=== PATIENT | male | born 1975 | race Caucasian/White ===

== ENCOUNTER 2017-05-28 08:42 | Day surgery (SDC) | payer MEDICAID, SELFPAY ==
[2017-05-28 09:06] VITALS: BP 149/92; PULSE 70; RESP 16; TEMP 36.8; O2SAT 96; BMI 54.0
--- NOTE | 2017-05-28 10:30 | RAD_ITS ---
PROCEDURE: Caudal block. DATE OF EXAMINATION: May 28, 2017. INDICATION: Male, 41 years old. Chronic back pain. FLUOROSCOPY TIME (if supplied): (0:11) minutes/seconds Fluoroscopic services provided for caudal block. RAD/OR-[place]/Epid Inj/Lum Sac/1st IMPRESSION: Fluoroscopic services provided for caudal block. Electronically Signed: Dada Craig MD at 12:38 EST Tel [phone], Service support ,
[2017-05-28] MEDS: MethylPREDNISolone Acetate 80 MG/ML Vial (10:34)
[2017-05-28] MEDS: Bupivacaine 0.25% 30 ML Vial (10:34)
[2017-05-28 10:40] VITALS: BP 141/82; BP 149/92; PULSE 69; RESP 15; TEMP 37.1; O2SAT 94
[2017-05-28 10:45] VITALS: BP 112/48; BP 149/92; PULSE 66; RESP 16; O2SAT 96
[2017-05-28 10:50] VITALS: BP 119/67; BP 149/92; PULSE 63; RESP 16; O2SAT 97
[2017-05-28 10:55] VITALS: BP 126/62; BP 149/92; PULSE 65; RESP 16; TEMP 36.6; O2SAT 97
[2017-05-28 11:20] VITALS: BP 149/92
--- NOTE | 2017-05-28 15:49 | OP.PCM_ITS ---
Problem List (1) Degeneration of lumbosacral intervertebral disc Status: Chronic (2) Lumbosacral radiculopathy Status: Chronic (3) Lumbosacral stenosis Status: Chronic Report of Operation Date of Procedure: 05/28/17 Pre-Operative Diagnosis: Lumbosacral radiculopathy, lumbosacral degenerative disc disease, lumbosacral spinal stenosis Post-Operative Diagnosis: Lumbosacral radiculopathy, lumbosacral degenerative disc disease, lumbosacral spinal stenosis Surgery/Procedure Performed:: Caudal epidural steroid injection Description of Surgical Findings:: PROCEDURE: Caudal epidural steroid injection PREOPERATIVE DIAGNOSIS: Lumbosacral radiculopathy, lumbosacral degenerative disc disease, lumbosacral spinal stenosis POSTOPERATIVE DIAGNOSIS: Lumbosacral radiculopathy, lumbosacral degenerative disc disease, lumbosacral spinal stenosis ANESTHESIA: MAC COMPLICATIONS: None BLOOD LOSS: Minimal PROCEDURE IN DETAIL: History and physical today was reviewed. Risks and benefits of the procedure were explained. The patient understood, agreed to our procedure, and informed consent was obtained. IV inserted per routine protocol. The patient was taken to the operating room, placed in a prone position with a pillow positioned underneath the abdomen. Under direct physician fluoroscopy on the lateral view the caudal space was identified the skin and subcutaneous tissue were anesthetized approximately 3 cc of 1% lidocaine using a 25-gauge regular needle under direct visualization with fluoroscopy on the lateral view using a 22- gauge 3-1/2 inch spinal needle the needle was advanced via the skin through the sacral hiatus tip of the needle passed through the sacrococcygeal ligament advanced approximately S4 area after negative aspiration for blood or CSF a total of 3 cc of contrast were injected to confirm correct placement of the needle as well as cephalad spread the spread was followed to approximately L5 area after confirmation AP as well as lateral view and repeated negative aspiration a total of 15 cc of preservative-free 0.125% Marcaine with 80 mg of Depo-Medrol were injected easily. The needles were then removed intact.The patient experienced no signs or symptoms intrathecal, intravascular injection. The patient experienced no paraesthesia. The procedure was completed without any apparent difficult, any complication. The patient appeared to tolerate well. ASSESSMENT AND PLAN: This is a 41-year-old male with lumbosacral radiculopathy, lumbosacral degenerative disc disease, lumbosacral spinal stenosis status post caudal epidural steroid injection. The patient will continue his current medications. The patient will follow in approximately 2 weeks for possible repeat of the procedure if indicated.
== END 2017-05-28 11:20 | disposition home or self-care (01) ==
LOC: SDC 08:48 → AC 08:52
PROVIDERS: Visit Provider Anesthesiology Pain Medicine
PROC: 3E0S3BZ Introduction of Anesthetic Agent into Epidural Space, Percutaneous Approach (ICD-10-PCS; CPT 62282; principal; 2017-05-28 10:25)
DX: M51.17 Intervertebral disc disorders with radiculopathy, lumbosacral region (principal); M48.07 Spinal stenosis, lumbosacral region; M48.061 Spinal stenosis, lumbar region without neurogenic claudication; M51.16 Intervertebral disc disorders with radiculopathy, lumbar region; M47.26 Other spondylosis with radiculopathy, lumbar region; M50.30 Other cervical disc degeneration, unspecified cervical region; M47.812 Spondylosis without myelopathy or radiculopathy, cervical region; M25.512 Pain in left shoulder; M79.7 Fibromyalgia; I25.2 Old myocardial infarction; K21.9 Gastro-esophageal reflux disease without esophagitis; F17.200 Nicotine dependence, unspecified, uncomplicated; Z79.891 Long term (current) use of opiate analgesic; Z79.899 Other long term (current) drug therapy
CPT/HCPCS: 62323; 64520; 64483; 77003; J7120; J3490

== ENCOUNTER 2017-12-24 12:32 | Day surgery (SDC) | payer MEDICAID, SELFPAY ==
[2017-12-24 12:46] VITALS: BP 127/79; PULSE 85; RESP 18; TEMP 36.2; O2SAT 97; BMI 52.7
[2017-12-24] MEDS: Bupivacaine Mpf 0.5% 30 ML VIAL (13:56)
[2017-12-24] MEDS: MethylPREDNISolone Acetate 80 MG/ML Vial (13:56)
--- NOTE | 2017-12-24 14:05 | RAD_ITS ---
PROCEDURE: Caudal block. DATE OF EXAMINATION: December 24, 2017. INDICATION: Male, 42 years old. Low back pain. FLUOROSCOPY TIME (if supplied): (0:15) minutes/seconds. 2 coned-down views were obtained. Intraoperative imaging provided for caudal block. The spinal needle is seen along the posterior midportion of the sacrum. RAD/Fluor Guidance for Spine Inj IMPRESSION: Intraoperative imaging provided for caudal block. Electronically Signed: Dada Craig MD at 11:14 EDT Tel [phone], Service support ,
[2017-12-24 14:08] VITALS: BP 115/76; BP 127/79; PULSE 80; RESP 16; TEMP 36.6; O2SAT 96
[2017-12-24 14:10] VITALS: BP 127/79; BP 129/75; PULSE 84; RESP 16; O2SAT 95
[2017-12-24 14:15] VITALS: BP 127/79; BP 138/76; PULSE 84; RESP 16; O2SAT 93
[2017-12-24 14:20] VITALS: BP 115/70; BP 127/79; PULSE 77; RESP 16; TEMP 36.4; O2SAT 96
[2017-12-24 14:41] VITALS: BP 127/79
--- NOTE | 2017-12-24 15:10 | OP.PCM_ITS ---
Problem List (1) Degeneration of lumbosacral intervertebral disc Status: Chronic (2) Lumbosacral radiculopathy Status: Chronic (3) Lumbosacral stenosis Status: Chronic Report of Operation Date of Procedure: 12/24/17 Pre-Operative Diagnosis: Lumbosacral radiculopathy, lumbosacral degenerative disc disease, lumbosacral spinal stenosis Post-Operative Diagnosis: Lumbosacral radiculopathy, lumbosacral degenerative disc disease, lumbosacral spinal stenosis Surgery/Procedure Performed:: Caudal epidural steroid injection Description of Surgical Findings:: PROCEDURE: Caudal epidural steroid injection PREOPERATIVE DIAGNOSIS: Lumbosacral radiculopathy, lumbosacral degenerative disc disease, lumbosacral spinal stenosis POSTOPERATIVE DIAGNOSIS: Lumbosacral radiculopathy, lumbosacral degenerative disc disease, lumbosacral spinal stenosis ANESTHESIA: MAC COMPLICATIONS: None BLOOD LOSS: Minimal PROCEDURE IN DETAIL: History and physical today was reviewed. Risks and benefits of the procedure were explained. The patient understood, agreed to our procedure, and informed consent was obtained. IV inserted per routine protocol. The patient was taken to the operating room, placed in a prone position with a pillow positioned underneath the abdomen. The lower back and tailbone area was prepped and draped in a sterile fashion using iodine ?3 under fluoroscopy guidance on the lateral view the caudal space was identified the skin and subcutaneous tissue and size approximately 3 cc of 1 % lidocaine using a 25-gauge regular needle under direct visualization fluoroscopy using the lateral approach using a 22-gauge 3-1/2 inch spinal needle the needle was advanced via the skin through the sacral hiatus, tip of the needle passed through the sacrococcygeal ligament advanced approximately S4 area after negative aspiration for blood or CSF a total of 3 cc of contrast were injected to confirm correct placement of the needle as well as cephalad spread the spread was followed to approximately L5 area after confirmation AP as well as lateral view repeated negative aspiration a total of 15 cc of preservative-free 0.125% Marcaine with 80 mg of the portal was injected easily. The needles were then removed intact. The patient experienced no signs or symptoms intrathecal, intravascular injection. The patient experienced no paraesthesia. The procedure was completed without any apparent difficult, any complication. The patient appeared to tolerate well. ASSESSMENT AND PLAN: This is a 42-year-old male with lumbosacral radiculopathy, lumbosacral degenerative disc disease, lumbosacral spinal stenosis status post caudal epidural steroid injection. The patient will continue his current medications. The patient will follow in approximately 2 weeks for possible repeat of the procedure if indicated.
== END 2017-12-24 14:42 | disposition home or self-care (01) ==
LOC: SDC 12:32 → AC 12:42
PROVIDERS: Visit Provider Anesthesiology Pain Medicine
PROC: 3E0S3BZ Introduction of Anesthetic Agent into Epidural Space, Percutaneous Approach (ICD-10-PCS; CPT 62282; principal; 2017-12-24 14:00)
DX: M51.17 Intervertebral disc disorders with radiculopathy, lumbosacral region (principal); M48.07 Spinal stenosis, lumbosacral region; I10 Essential (primary) hypertension; I25.2 Old myocardial infarction; G47.30 Sleep apnea, unspecified; G25.81 Restless legs syndrome; K21.9 Gastro-esophageal reflux disease without esophagitis; F41.9 Anxiety disorder, unspecified; F32.9 Major depressive disorder, single episode, unspecified; Z79.899 Other long term (current) drug therapy; F17.200 Nicotine dependence, unspecified, uncomplicated
CPT/HCPCS: 01992; 62323; 64483; 77003; J7120; J3490

== ENCOUNTER 2018-05-13 07:28 | Day surgery (SDC) | payer MEDICAID, SELFPAY ==
[2018-05-13] VITALS (7 sets, daily range): BP systolic 108–128; BP diastolic 66–76; PULSE 65–80; RESP 16–18; TEMP 36.4–37; O2SAT 93–98; BMI 54.1
--- NOTE | 2018-05-13 08:40 | RAD_ITS ---
STUDY: X-RAY -FLUOROSCOPY FOR TRANSFORAMINAL BLOCK REASON FOR EXAM: Male, 42 years old. Pain TECHNIQUE: 2 view(s) of the lumbar spine were obtained. COMPARISON: None FINDINGS: 2 views of the lower lumbar spine were obtained on a C-arm for rest foramina block. Needle is seen on the right side of the last lumbar vertebra. The exam otherwise is nondiagnostic. The fluoroscopy time was 25 seconds. RAD/Lumbar Spine 2 or 3 Views IMPRESSION: Intraoperative exam as described above. Electronically Signed: Keith Gardiner MD at 13:31 EST Tel , Service support ,
[2018-05-13] MEDS: Bupivacaine 0.25% 30 ML Vial (08:51)
[2018-05-13] MEDS: MethylPREDNISolone Acetate 80 MG/ML Vial (08:51)
--- NOTE | 2018-05-13 11:35 | PCM.OPRPT ---
Problem List (1) Degeneration of lumbosacral intervertebral disc Status: Chronic (2) Lumbosacral radiculopathy Status: Chronic (3) Lumbosacral stenosis Status: Chronic Report of Operation Date of Procedure: 05/13/18 Pre-Operative Diagnosis: Lumbosacral radiculopathy, lumbosacral degenerative disc disease, lumbosacral spinal stenosis Post-Operative Diagnosis: Lumbosacral radiculopathy, lumbosacral degenerative disc disease, lumbosacral spinal stenosis Surgery/Procedure Performed:: Left-sided lumbar transforaminal epidural steroid injection L4-5, L5-S1 Description of Surgical Findings:: PROCEDURE: Left-sided lumbar transforaminal epidural steroid injection L4-5, L5-S1 PREOPERATIVE DIAGNOSIS: Lumbosacral radiculopathy, lumbosacral degenerative disc disease, lumbosacral spinal stenosis POSTOPERATIVE DIAGNOSIS: Lumbosacral radiculopathy, lumbosacral degenerative disc disease, lumbosacral spinal stenosis ANESTHESIA: MAC COMPLICATIONS: None BLOOD LOSS: Minimal PROCEDURE IN DETAIL: History and physical today was reviewed. Risks and benefits of the procedure were explained. The patient understood, agreed to our procedure, and informed consent was obtained. IV inserted per routine protocol. The patient was taken to the operating room, placed in a prone position with a pillow positioned underneath the abdomen. The lower back and tailbone area was prepped and draped in a sterile fashion using iodine x3 under fluoroscopy guidance on the right oblique view the L4 through S1 vertebral bodies are visualized the skin and subcutaneous tissue and size approximately 5 cc of 1% lidocaine using a 25-gauge regular needle under direct visualization fluoroscopy at approximately 35 degrees angle starting on the left L4 ending on the left L5 using a 22-gauge 5 inch spinal needle the needle was advanced via the skin tip of the needle's maneuver and directed towards the inferior and medial gutter of the transverse process at the superiormost aspect of the neuroforamen under direct physician fluoroscopy on a AP as well as lateral view after negative aspiration for blood or CSF a total of 2 cc of contrast were injected in divided doses between both levels to confirm correct placement of the needle as well as medial spread the confirmation was obtained on AP as well as lateral view after repeated negative aspiration and confirmation a total of 6 cc of preservative-free 0.25% Marcaine with 80 mg of Demerol was injected in divided doses between both levels the needles were then removed intact. The patient experienced no signs or symptoms intrathecal, intravascular injection. The patient experienced no paraesthesia. The procedure was completed without any apparent difficult, any complication. The patient appeared to tolerate well. ASSESSMENT AND PLAN: This is a 42-year-old male with lumbosacral radiculopathy lumbosacral degenerative disc disease lumbosacral spinal stenosis status post left-sided lumbar transforaminal epidural steroid injection L4-S1, patient would continue his current medications the patient will follow in approximately 2 weeks for reevaluation.
== END 2018-05-13 09:49 | disposition home or self-care (01) ==
LOC: SDC 07:28 → AC 07:30
PROVIDERS: Family Provider Internal Medicine; PCP Internal Medicine; Referring Provider Anesthesiology Pain Medicine; Visit Provider Anesthesiology Pain Medicine
PROC: 3E0S3BZ Introduction of Anesthetic Agent into Epidural Space, Percutaneous Approach (ICD-10-PCS; CPT 64484; principal; 2018-05-13 08:35)
DX: M51.17 Intervertebral disc disorders with radiculopathy, lumbosacral region (principal); M48.07 Spinal stenosis, lumbosacral region; K21.9 Gastro-esophageal reflux disease without esophagitis; I10 Essential (primary) hypertension; I25.2 Old myocardial infarction; F17.200 Nicotine dependence, unspecified, uncomplicated; Z79.1 Long term (current) use of non-steroidal anti-inflammatories (NSAID); Z79.899 Other long term (current) drug therapy
CPT/HCPCS: 01936; 64484; 64483; 72100; J7120

== ENCOUNTER 2019-03-10 10:30 | Outpatient (RCR) | payer MEDICAID, SELFPAY ==
[2018-05-13 07:42] VITALS: BMI 54.1
--- NOTE | 2018-12-24 10:03 | HP.PTEVAL_ITS ---
Patient's Visit Information RAFAL DUARTE is a 43 year old M referred to Physical Therapy by ANNMARIE Haynes with a diagnosis of Lumbar, Cervical, Thoracic and Shoulder. Date of Evaluation: 12/24/18 Physical Therapist: Madina Wing DPT - Visit Plan Frequency: 2x /Week Duration: 4 Weeks Plan: Aquatic PT- focus on LE, UE, scap and core s/s. - Subjective Findings: Patient reports that pain managment referred him- to get his injections he has to do therapy. He has spinal stenosis and arthritis throughout his whole spine. 2012 had an ACDF and it left his left neck and shoulder problematic. Was working at the [employer] and was unsure exactly what happened but a chip broke off and punctured his spinal cord. Has numbness and weakness in the let side and its starting to travel to the right. Has N/T bilateral LE and lymphedema in the left side. Is not having injections in the cervical spine currently- has had them before- last time was last year. Gets 4 a year so tries to save for winter time. Describes the pain as sharp/shooting and dull and achy. It is really tight in the left upper trap. Gets more [place] the tighter he is but reports no blurred vision or dizziness. Last 2 fingers on the right are starting to go numb. Right hand dominate. Left side decreased finger dexterity and vice president client services strength. Gets pain that shoots down the arm to the tips of his fingers. Agg: sometimes nothing, turning wrong. Worst: 7/10 Eases: hot shower. Best: 10. Very challenging to look upwards. Had a MRI of the whole spine not to long ago. Sleep: distured hard to get comfortable- side sleeper. Has had PT before- went there earlier this year- they don't have a pool. Back pain insidious onset- has always had back pains but continues to get worse. Hard laboror for years. Worst: 11/16 Agg: twi sting, catching it just right it pops Best: 10 Eases: laying down helps sometimes. Describes the pain as sharp/shooting- along the upper lumbar spine and radiates to the neck and down to the toes. N/T left>right. Sharp/shooting runs down the LE as well. Does have a boot pump for lymphedema- the stockings were hard to get on- [employer] is managing lyphedema. PMHx/Meds: in chart - Objective Posture: FH, RS, increased kyphosis- does have increased muscle mass of upper trap and shoulder musculature on the right vs left. Pt is overweight- can correct posture in sitting with verbal cues but does not maintain. Gait: no significant deviaton noted- does have good arm swing and trunk rotation. HR/TR: able with UE A for balance. SLS: Left: 2 seconds Right: 4 seconds. ROM: Cervical: SB/Rot/Flx: WNL Extension: severe restriction and reports severe pain. Shoulder/Elbow/Wrist: WFL Lumbar: WFL in all planes but reports pain. Hip/Ankle/Knee: WFL. Sensation: diminished to gross touch on left UE and LE. Palpation: tender along paraspinals from lumbar to base of occiput- left upper trap to tip of acromion. Flex: HS: mild, Gastroc: mild. Strength: Cervical Spine: 4/5, Left Shoulder: 4-/5 throughout Right: 4+/5 throughout. Elbow: Left: 4-/5, Right: 5/5, Wrist: Left: 4/5, Right: 5/5, Auto Transport Driver: Left: 90/90/65 Right: 100/100/110. Core: poor, Hip: 4+/5, Knee: 5/5, Ankle: 5/5. Special Test: Slump: positive bilateral - Goals Goal 1:: Patient will be I with HEP and progression Goal Time Frame: 4-6 Weeks Goal 2:: Patient will maintain proper posture in sitting throughout tx session to demo increased core s/s. Goal Time Frame: 4-6 Weeks Goal 3:: Patient will report 5/10 pain for 1 week Goal Time Frame: 4-6 Weeks Goal 4:: Patient will report sleeping through the night for 3 days Goal Time Frame: 4-6 Weeks Goal 5:: Patient will demo 4+/5 in left UE Goal Time Frame: 4-6 Weeks - Rehabilitation Potential Physical Therapy Diagnosis: Patient presents with hypomobility- he has decreased ROM, strength and muscular endurance leading to poor posture and increased pain with ADL's. Rehabilitation Potential: Fair - Anticipated Interventions Patient/Client Instruction: Educate patient on: Benefits of Fitness Program For the Purpose of:: To improve muscle performance and motor function Therapeutic Exercise to Include: Strength training, Endurance training, Balance training, Agility training, Body mechanics, Postural training, Flexibilty training, Gait and locomotor training, In an aquatic setting, Dynamic Lumbar Stabilization, Scapular Strength/Stabilization For the Purpose of:: To improve muscle performance and motor function Thank you for the opportunity to evaluate your patient. For Medicare and Medicare HMO plans, please review the plan of care and approve it. It will need to be FAXED BACK to us at [phone] for Medicare purposes. For Medicare only, by signing this I certify the plan of care. Please let me know if there are questions or concerns regarding this plan of care. Physician Signature: Date:
--- NOTE | 2019-01-23 14:34 | HP.PTREVAL ---
Arely Gusman, BLAYNE-C, It has been my pleasure to treat RAFAL DUARTE over the last 10 visits for Lumbar, Cervical, Thoracic and Shoulder. Please see the progress note below for an update on the physical therapy plan of care! Subjective: Pt. reports AT has been going well, enjoys it. Pain still stays around a 6. States he needs to cont. working on balance and strength. Feels good to be in the pool, feels like it's carrying over. Objective/Function: Posture: FH, RS, increased kyphosis- does have increased muscle mass of upper trap and shoulder musculature on the right vs left. Pt is overweight- can correct posture in sitting with verbal cues but does not maintain. Gait: no significant deviaton noted- does have good arm swing and trunk rotation. HR/TR: able with UE A for balance. SLS: Left: 2 seconds Right: 4 seconds. ROM: Cervical: SB/Rot/Flx: WNL Extension: severe restriction and reports severe pain. Shoulder/Elbow/Wrist: WFL Lumbar: WFL in all planes but reports pain. Hip/Ankle/Knee: WFL. Sensation: diminished to gross touch on left UE and LE. Palpation: tender along paraspinals from lumbar to base of occiput- left upper trap to tip of acromion. Flex: HS: mild, Gastroc: mild. Strength: Cervical Spine: 4/5, Left Shoulder: 4/5 throughout Right: 4+/5 throughout. Elbow: Left: 4/5, Wrist: Left: 4/5, Right: 5/5, Spectrograph Operator: Left: 90/90/70 Right: 120/120/120. Core: poor, Hip: 4+/5. Special Test: Slump: positive bilateral Plan Plan: 01/23/19 - Pt. rescheduled 2x/week for 4 more weeks of AT. Cont. POC, progress as tolerated. Goals Goal 1:: Patient will be I with HEP and progression Goal Time Frame: 4-6 Weeks Goal 2:: Patient will maintain proper posture in sitting throughout tx session to demo increased core s/s. Goal Time Frame: 4-6 Weeks Goal 3:: Patient will report 5/10 pain for 1 week Goal Time Frame: 4-6 Weeks Goal 4:: Patient will report sleeping through the night for 3 days Goal Time Frame: 4-6 Weeks Goal 5:: Patient will demo 4+/5 in left UE Goal Time Frame: 4-6 Weeks Anticipated Interventions Patient/Client Instruction: Educate patient on: Benefits of Fitness Program For the Purpose of:: To improve muscle performance and motor function Therapeutic Exercise to Include: Strength training, Endurance training, Balance training, Agility training, Body mechanics, Postural training, Flexibilty training, Gait and locomotor training, In an aquatic setting, Dynamic Lumbar Stabilization, Scapular Strength/Stabilization For the Purpose of:: To improve muscle performance and motor function Please do not hesitate to contact me at [phone] by phone or if you have questions or concerns regarding this new plan of care! Sincerely, Madina Wing DPT
--- NOTE | 2019-03-10 10:58 | HP.PTDCSUM ---
HP - PT D/C Summary It has been my pleasure to treat RAFAL DUARTE under orders from ANNMARIE Haynes, for the diagnosis of Lumbar, Cervical, Thoracic and Shoulder for a total of 17 visit(s). Discharge Date: Please see the following information for a summary of their discharge status. - Subjective Subjective: Patient reports that he has good days and bad days. Neck is popping and more painful since starting therapy. His back was doing well when in therapy but is starting to get sore again. Is doing a lot more car traveling and that bothers him. Is planning to continue his exercises at home. - Pain Cerv. Spine Pain Intensity (Out of 10): 7 Shoulder Pain Intensity (Out of 10): 7 Thoracic Spine Pain Intensity (Out of 10): 4 Lumbar Spine Pain Intensity (Out of 10): 5 - Overall Improvement % Improvement: 70 - Objective Objective/Function: Posture: FH, RS, increased kyphosis- does have increased muscle mass of upper trap and shoulder musculature on the right vs left. Pt is overweight- can correct posture in sitting with verbal cues but does not maintain. Gait: no significant deviaton noted- does have good arm swing and trunk rotation. HR/TR: able with UE A for balance. SLS: Left: 2 seconds Right: 4 seconds. ROM: Cervical: SB/Rot/Flx: WNL Extension: severe restriction and reports severe pain. Shoulder/Elbow/Wrist: WFL Lumbar: WFL in all planes but reports pain. Hip/Ankle/Knee: WFL Palpation: tender along paraspinals from lumbar to base of occiput- left upper trap to tip of acromion. Flex: HS: mild, Gastroc: mild. Strength: Cervical Spine: 4/5, Left Shoulder: 4+/5 throughout Right: 4+/5 throughout. Elbow: Left: 4/5, Wrist: Left: 4/5, Right: 5/5,. No significant changes since re-evaluation - Goals Goal 1:: Patient will be I with HEP and progression Goal Progress: Goal Met Goal 2:: Patient will maintain proper posture in sitting throughout tx session to demo increased core s/s. Goal Progress: Progressing Goal 3:: Patient will report 5/10 pain for 1 week Goal Progress: Progressing Goal 4:: Patient will report sleeping through the night for 3 days Goal Progress: Progressing Goal 5:: Patient will demo 4+/5 in left UE Goal Progress: Progressing - Plan Plan: Discharge to HEP - D/C Information If there are questions or concerns regarding this patient's physical therapy, please feel free to call me at [phone]. Thank you for the referral of this patient. Sincerely, CORTEZ PrajapatiT
== END 2019-03-10 11:00 | disposition home or self-care (01) ==
LOC: PT 10:30
PROVIDERS: Family Provider Internal Medicine; PCP Internal Medicine; Referring Provider Nurse Practitioner Family; Visit Provider Nurse Practitioner Family
DX: M47.812 Spondylosis without myelopathy or radiculopathy, cervical region (principal); M12.9 Arthropathy, unspecified; M25.519 Pain in unspecified shoulder; S49.80XD Other specified injuries of shoulder and upper arm, unspecified arm, subsequent encounter; M47.814 Spondylosis without myelopathy or radiculopathy, thoracic region; M79.10 Myalgia, unspecified site; M48.061 Spinal stenosis, lumbar region without neurogenic claudication; M51.36 Other intervertebral disc degeneration, lumbar region; M47.816 Spondylosis without myelopathy or radiculopathy, lumbar region; M54.16 Radiculopathy, lumbar region
CPT/HCPCS: 97110; 97113; 97162; 97164; 97530

== ENCOUNTER 2019-04-14 08:11 | Day surgery (SDC) | payer MEDICAID, SELFPAY ==
[2018-05-13 07:42] VITALS: BMI 54.1
[2019-04-14] MEDS: Bupivacaine 0.25% 30 ML Vial (07:00)
[2019-04-14 08:40] VITALS: BP 149/83; PULSE 76; RESP 16; TEMP 36.3; O2SAT 97; BMI 54.9
[2019-04-14] MEDS: Lactated Ringers 1,000 ML 100 ML IV (08:55)
--- NOTE | 2019-04-14 09:36 | RAD_ITS ---
STUDY: X-RAY - CERVICAL SPINE REASON FOR EXAM: Male, 43 years old. Injection C4-C7, 4 SPOTS TECHNIQUE: 4 Limited C-arm view(s) of the cervical spine were obtained. COMPARISON: None FINDINGS: 4 Limited C-arm films of the cervical spine were performed as patient has undergone facet joint injection at C4, C5, C6 and C7. RAD/Cerv Spine 4 or 5 Views IMPRESSION: Facet joint injections Electronically Signed: Eber Richard MD at 16:10 EST , Service support ,
[2019-04-14] MEDS: MethylPREDNISolone Acetate 80 MG/ML Vial (09:41)
[2019-04-14 09:53] VITALS: BP 141/81; BP 149/83; PULSE 69; RESP 18; TEMP 37; O2SAT 94
--- NOTE | 2019-04-14 09:53 | OP.PCM_ITS ---
Report of Operation Date of Procedure: 04/14/19 Description of Surgical Findings:: PREOPERATIVE DIAGNOSIS: Cervical spondylosis, cervical degenerative disc disease, cervical facet arthropathy POSTOPERATIVE DIAGNOSIS: Cervical spondylosis, cervical degenerative disc disease, cervical facet arthropathy PROCEDURE PERFORMED: Left-sided cervical facet steroid injection, C4, C5, C6, and C7. ANESTHESIA: MAC. BLOOD LOSS: Minimal. COMPLICATIONS: None. DESCRIPTION OF PROCEDURE: History and physical of today was reviewed. Risks and benefits of the procedure were explained. The patient understood and agreed to proceed. Informed consent was obtained. IV inserted per routine protocol. The patient was taken to the operating room and placed in the prone position with a pillow positioned underneath the chest. The neck area was prepped and draped in a sterile fashion using iodine x3. Under fluoroscopy guidance on an AP view, the C4 through C7 vertebral bodies were visualized at approximately 10- degree angle, starting on the left C4, ending on the left C7, passing through the C5 and C6. Using a 25-gauge 3-1/2-inch spinal needle, the needle was advanced via the skin. The tip of the needle was maneuvered and directed towards the epiphyseal junction of each corresponding vertebra. Once the tip of the needle was at the vicinity of the medial branch, the needle was pulled approximately 2 mm off the bone. After negative aspiration of blood or CSF and confirmation on AP, oblique as well as lateral view, a total of 4 mL of preservative-free 0.25% Marcaine with 80 mg of Depo-Medrol was injected in divided doses between those four levels. The needles were then removed intact. The patient experienced no sign or symptoms of intrathecal or intravascular injection. The patient experienced no paresthesia. The procedure was completed without any apparent difficulty or any complications. The patient appeared to tolerate it well. ASSESSMENT AND PLAN: This is a 43-year-old male with cervical spondylosis, cervical degenerative disc disease, cervical facet arthropathy status post left-sided cervical facet steroid injection C4-C7 patient will continue his current medications patient phone approximately 2 weeks for reevaluation.
[2019-04-14 10:00] VITALS: BP 149/83; BP 152/95; PULSE 69; RESP 18; O2SAT 95
[2019-04-14 10:05] VITALS: BP 149/83; BP 152/85; PULSE 71; RESP 18; O2SAT 97
[2019-04-14 10:10] VITALS: BP 143/88; BP 149/83; PULSE 68; RESP 18; TEMP 37.2; O2SAT 97
[2019-04-14 10:28] VITALS: BP 149/83
== END 2019-04-14 10:28 | disposition home or self-care (01) ==
LOC: SDC 08:14 → AC 08:14
PROVIDERS: Family Provider Internal Medicine; PCP Internal Medicine; Referring Provider Anesthesiology Pain Medicine; Visit Provider Anesthesiology Pain Medicine
PROC: 3E0U3BZ Introduction of Anesthetic Agent into Joints, Percutaneous Approach (ICD-10-PCS; CPT 64490; principal; 2019-04-14 09:40)
DX: M47.812 Spondylosis without myelopathy or radiculopathy, cervical region (principal); M50.321 Other cervical disc degeneration at C4-C5 level; M25.519 Pain in unspecified shoulder; M47.814 Spondylosis without myelopathy or radiculopathy, thoracic region; M79.7 Fibromyalgia; M51.17 Intervertebral disc disorders with radiculopathy, lumbosacral region; M48.07 Spinal stenosis, lumbosacral region; M47.27 Other spondylosis with radiculopathy, lumbosacral region; F17.200 Nicotine dependence, unspecified, uncomplicated; I10 Essential (primary) hypertension; I25.2 Old myocardial infarction; K21.9 Gastro-esophageal reflux disease without esophagitis; Z79.891 Long term (current) use of opiate analgesic; Z79.899 Other long term (current) drug therapy
CPT/HCPCS: 64491; 64490; 72040; 72050; J7120

== ENCOUNTER 2019-05-26 08:20 | Day surgery (SDC) | payer MEDICAID, SELFPAY ==
[2019-05-26] VITALS (7 sets, daily range): BP systolic 109–140; BP diastolic 72–92; PULSE 70–86; RESP 16–20; TEMP 36.6–36.9; O2SAT 92–95; BMI 58.3
[2019-05-26] MEDS: Lactated Ringers 1,000 ML 100 ML IV (09:08)
--- NOTE | 2019-05-26 09:13 | RAD_ITS ---
STUDY: X-RAY - CERVICAL SPINE REASON FOR EXAM: Male, 43 years old. RADIOFREQUENCY ABLATION C4-C7 -- 46.9 FLUORO SEC, 10.33mGy, 14 FLUORO IMAGES TECHNIQUE: 10: Intraoperative view(s) of the cervical spine were obtained. COMPARISON: None FINDINGS: Intraoperative fluoroscopic services provided for left C4-C7 radiofrequency ablation. RAD/Cerv Spine 2 or 3 Views IMPRESSION: Intraoperative fluoroscopic services provided for left C4-C7 radiofrequency ablation. Electronically Signed: Dada Craig, at 15:45 EST , Service support ,
[2019-05-26] MEDS: Bupivacaine 0.25% 30 ML Vial (09:24)
[2019-05-26] MEDS: MethylPREDNISolone Acetate 80 MG/ML Vial (09:24)
--- NOTE | 2019-05-26 12:22 | PCM.OPRPT ---
Report of Operation Date of Procedure: 05/26/19 Description of Surgical Findings:: PREOPERATIVE DIAGNOSIS: Cervical spondylosis, cervical degenerative disc disease, cervical facet arthropathy POSTOPERATIVE DIAGNOSIS: Cervical spondylosis, cervical degenerative disc disease, cervical facet arthropathy PROCEDURE PERFORMED: Left-sided radiofrequency ablation of the medial branch at C4, C5, C6, and C7. ANESTHESIA: MAC. BLOOD LOSS: Minimal. COMPLICATIONS: None. DESCRIPTION OF PROCEDURE: History and physical of today was reviewed. Risks and benefits of the procedure were explained. The patient understood and agreed to proceed. Informed consent was obtained. IV inserted per routine protocol. The patient was taken to the operating room and placed in the prone position with a pillow positioned underneath the chest. The neck area was prepped and draped in a sterile fashion using iodine x3. Under fluoroscopy guidance on an AP view, the C4 through C7 vertebral bodies were visualized. The skin and subcutaneous tissue was anesthetized with approximately 10 mL of 1% lidocaine using a 25-gauge regular needle. Under direct visualization on fluoroscopy on a lateral view, using a 21-gauge 10-cm with a 10-mm curved active-tip radiofrequency ablation needle, the needle was passed through the skin. The tip of the needle was maneuvered and directed towards the epiphyseal junction of each corresponding vertebra, starting on the left C4, ending on the left C7, passing through the C5 and C6. Once the tip of the needle was at the vicinity of the medial branch and at the middle of the trapezoid on the lateral view, the stylette of each needle was then removed. After negative aspiration of blood or CSF and confirmation on AP, oblique as well as lateral view, radiofrequency ablation probe was then inserted at each level. Impedance was then recorded at C4 to be 276 ohm, at C5 to be 239 ohm, at C6 to be 252 ohm, and at C7 to be 290 ohm. Motor-evoked potential was then initiated to 1.5 volt without any motor response to each corresponding level or the left arm. The probe was then removed intact and a total of 4 mL of preservative-free 1% lidocaine was injected in divided doses between those four levels after negative aspiration of blood or CSF. After repeated confirmation, the radiofrequency ablation probe was then inserted and after repeated confirmation on AP, oblique as well as lateral view, radiofrequency ablation was then initiated to approximately 80 degree Celsius for 60 second at each level. Once concluded, the probe was then removed intact. A total of 4 mL of preservative-free 0.25% Marcaine with 40 mg of Depo-Medrol was injected in divided doses between those four levels. The needles were then removed intact. The patient experienced no sign or symptoms of intrathecal or intravascular injection. The patient experienced no paresthesia. The procedure was completed without any apparent difficulty or any complications. The patient appeared to tolerate it well. Sensory as well as motor exam was unchanged from prior to the procedure. ASSESSMENT AND PLAN: This is a 43-year-old male with cervical spondylosis, cervical degenerative disc disease, cervical facet arthropathy status post left-sided cervical radiofrequency ablation of the medial branch C4-C7 patient will continue his current medications, patient will follow approximately 2 weeks for reevaluation.
== END 2019-05-26 10:39 | disposition home or self-care (01) ==
LOC: SDC 08:21 → AC 08:25
PROVIDERS: PCP Internal Medicine; Referring Provider Anesthesiology Pain Medicine; Visit Provider Anesthesiology Pain Medicine
PROC: (CPT 64633; principal; 2019-05-26 09:55)
DX: M47.812 Spondylosis without myelopathy or radiculopathy, cervical region (principal); M50.321 Other cervical disc degeneration at C4-C5 level; M50.323 Other cervical disc degeneration at C6-C7 level; M47.814 Spondylosis without myelopathy or radiculopathy, thoracic region; M51.36 Other intervertebral disc degeneration, lumbar region; M47.816 Spondylosis without myelopathy or radiculopathy, lumbar region; F17.200 Nicotine dependence, unspecified, uncomplicated; I10 Essential (primary) hypertension; G47.30 Sleep apnea, unspecified; Z79.891 Long term (current) use of opiate analgesic; Z79.899 Other long term (current) drug therapy
CPT/HCPCS: 64633; 64634 ×3; 72040; 76000; J7120

== ENCOUNTER 2019-08-11 07:54 | Day surgery (SDC) | payer MEDICAID, SELFPAY ==
[2019-05-26 08:54] VITALS: BMI 58.3
[2019-08-11 08:05] VITALS: BP 138/73; PULSE 83; RESP 16; TEMP 36.9; O2SAT 96; BMI 56.3
[2019-08-11] MEDS: Lactated Ringers 1,000 ML 100 ML IV (08:12)
--- NOTE | 2019-08-11 09:10 | RAD_ITS ---
PROCEDURE: Caudal block. DATE OF EXAMINATION: August 11, 2019. INDICATION: Male, 43 years old. Low back pain. FLUOROSCOPY TIME (if supplied): (8.4 seconds) minutes/seconds Intraoperative imaging provided for caudal block. RAD/Fluor Guidance for Spine Inj IMPRESSION: Intraoperative imaging provided for caudal block. Electronically Signed: Dada Craig, at 13:11 EDT , Service support ,
[2019-08-11] MEDS: MethylPREDNISolone Acetate 80 MG/ML Vial (09:45)
[2019-08-11] MEDS: Bupivacaine 0.25% 30 ML Vial (09:45)
[2019-08-11] MEDS: 0.9% Normal Saline (Pres. free 10 ML Vial (09:45)
[2019-08-11 09:55] VITALS: BP 110/65; BP 138/73; PULSE 77; RESP 18; TEMP 36.9; O2SAT 97
--- NOTE | 2019-08-11 09:58 | PCM.OPRPT ---
Report of Operation Date of Procedure: 08/11/19 Description of Surgical Findings:: PREOPERATIVE DIAGNOSIS: Lumbosacral radiculopathy, lumbosacral degenerative disc disease, lumbosacral spinal stenosis POSTOPERATIVE DIAGNOSIS: Lumbosacral radiculopathy, lumbosacral degenerative disc disease, lumbosacral spinal stenosis PROCEDURE PERFORMED: Caudal epidural steroid injection. ANESTHESIA: MAC. BLOOD LOSS: Minimal. COMPLICATIONS: None. DESCRIPTION OF PROCEDURE: History and physical of today was reviewed. Risks and benefits of the procedure were explained. The patient understood and agreed to proceed. Informed consent was obtained. IV inserted per routine protocol. The patient was taken to the operating room and placed in the prone position with a pillow positioned underneath the abdomen. The lower back and tailbone area was prepped and draped in a sterile fashion using iodine x3. Under fluoroscopy guidance on a lateral view, the caudal space was identified. The skin and subcutaneous tissue was anesthetized with approximately 3 mL of 1% lidocaine using a 25-gauge regular needle. Under direct visualization with fluoroscopy, using a 22-gauge 3-1/2-inch spinal needle, the needle was advanced via the skin through the sacral hiatus. The tip of the needle was passed through the sacrococcygeal ligament and advanced to approximately S4 area. After negative aspiration of blood or CSF, a total of 3 mL of contrast was injected to confirm correct placement of the needle as well as cephalad spread. The spread was followed to approximately L5 area. After confirmation on AP as well as lateral view and repeated negative aspiration, a total of 15 mL of preservative-free 0.125% Marcaine with 80 mg of Depo-Medrol was injected easily. The needle was then removed intact. The patient experienced no sign or symptoms of intrathecal or intravascular injection. The patient experienced no paresthesia. The procedure was completed without any apparent difficulty or any complications. The patient appeared to tolerate it well. ASSESSMENT AND PLAN: This is a 43-year-old male with lumbosacral radiculopathy, lumbosacral degenerative disc disease, lumbosacral spinal stenosis status post caudal epidural steroid injection, patient will continue his current medications, patient will follow approximately 2 weeks for reevaluation.
[2019-08-11 10:00] VITALS: BP 119/64; BP 138/73; PULSE 76; RESP 18; O2SAT 96
[2019-08-11 10:05] VITALS: BP 130/61; BP 138/73; PULSE 74; RESP 18; O2SAT 98
[2019-08-11 10:15] VITALS: BP 138/73; BP 146/85; PULSE 76; RESP 18; TEMP 37.2; O2SAT 97
[2019-08-11 10:27] VITALS: BP 138/73
== END 2019-08-11 10:27 | disposition home or self-care (01) ==
LOC: SDC 07:55 → AC 07:55
PROVIDERS: PCP Internal Medicine; Referring Provider Anesthesiology Pain Medicine; Visit Provider Anesthesiology Pain Medicine
PROC: 3E0S3BZ Introduction of Anesthetic Agent into Epidural Space, Percutaneous Approach (ICD-10-PCS; CPT 62282; principal; 2019-08-11 09:05)
DX: M48.07 Spinal stenosis, lumbosacral region (principal); M51.17 Intervertebral disc disorders with radiculopathy, lumbosacral region; M47.26 Other spondylosis with radiculopathy, lumbar region; M50.30 Other cervical disc degeneration, unspecified cervical region; M47.812 Spondylosis without myelopathy or radiculopathy, cervical region; M47.814 Spondylosis without myelopathy or radiculopathy, thoracic region; M79.7 Fibromyalgia; K21.9 Gastro-esophageal reflux disease without esophagitis; I25.2 Old myocardial infarction; I10 Essential (primary) hypertension; F17.200 Nicotine dependence, unspecified, uncomplicated; G47.30 Sleep apnea, unspecified; Z79.891 Long term (current) use of opiate analgesic; Z79.899 Other long term (current) drug therapy
CPT/HCPCS: 62323; 64520; 64483; 77003; J7120; J3490

== ENCOUNTER 2019-12-19 09:30 | Outpatient (RCR) | payer MEDICAID, SELFPAY ==
--- NOTE | 2019-11-04 09:28 | HP.PTEVAL ---
Patient's Visit Information RAFAL DUARTE is a 43 year old M referred to Physical Therapy by Dr. Sophia Nichols MD with a diagnosis of Low Back Pain. Date of Evaluation: 11/04/19 Physical Therapist: Madina Wing DPT - Visit Plan Frequency: 2x /Week Duration: 6 Weeks Plan: Aquatic Therapy- focus on core and functional strength - Subjective Patient reports that he has to have back therapy to have another MRI for another surgeon. Working with Dr. Rowell who specialized on larger people- he is out of [place]. Insurance wants him to do PT first prior to authorization. He reports having back problems for a long time. He had a cervical fusion in 2012 and since then its been really problems. He knows he has stenosis and arthritis. No specific injury- he had a very active lifestyle but then he started to have pain and has since stopped. Worst: 10 He feels like he get stuck and then has really painful pains in the left hip. Pain is always there Agg: lifting, bending, twisting Eases: injections Best: 10. Pain is located in the low back and radiates to the toes. describes the pain as dull and achy and sharp/shooting in different sports. He does report edema in his LE. Does have N/T in the LE which is pretty constant Left>right. Getting harder to urinate but no change in bowels. Sleep: bed- side sleeper- pain does wake him up and keeps him from sleeping. 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 PMHx/Meds: see list in chart. - Objective Posture: FH, RS, increased kyphosis- is unable to correct with verbal or tactile cues Pt is overweight- can correct posture in sitting with verbal cues but does not maintain. Gait: no significant deviaton noted- does have good arm swing and trunk rotation. HR/TR: able with UE A for balance. SLS:unable on the left and 4 seconds on the right ROM: Lumbar: WFL in all planes but reports pain. Hip/Ankle/Knee: WFL. Sensation: diminished to gross touch on left LE. Palpation: tender along paraspinals from lumbar to base of occiput-into the gluts on the left. Flex: HS: mod, Gastroc: mild. Strength: Core: poor, Hip: 4+/5, Knee: 5/5, Ankle: 5/5. Special Test: Slump: positive bilateral - Goals Goal 1:: Patient will be I with HEP and progression Goal Time Frame: 4-6 Weeks Goal 2:: Patient will maintain proper posture t/o tx session to demo increased core s/s Goal Time Frame: 4-6 Weeks Goal 3:: Patient will report 2/10 pain for 1 week Goal Time Frame: 4-6 Weeks - Rehabilitation Potential Physical Therapy Diagnosis: Patient presents with hypomobility- he has decreased painfree ROM, strength, flex and muscular endurance leading to abnormal gait increased pain with ADLs. Rehabilitation Potential: Fair - Anticipated Interventions Patient/Client Instruction: Educate patient on: Benefits of Fitness Program Therapeutic Exercise to Include: Strength training, Endurance training, Balance training, Agility training, Body mechanics, Postural training, Flexibilty training, Gait and locomotor training, Neuromotor development, In an aquatic setting, Passive ROM, Active ROM, Dynamic Lumbar Stabilization, Master Exercises For the Purpose of:: To improve muscle performance and motor function Thank you for the opportunity to evaluate your patient. For Medicare and Medicare HMO plans, please review the plan of care and approve it. It will need to be FAXED BACK to us at [phone] for Medicare purposes. For Medicare only, by signing this I certify the plan of care. Please let me know if there are questions or concerns regarding this plan of care. Physician Signature: Date:
--- NOTE | 2019-12-19 09:57 | HP.PTDCSUM ---
It has been my pleasure to treat RAFAL DUARTE referred by Dr. Sophia Nichols MD, with the diagnosis of Low Back Pain for a total of 14 visit(s). Discharge Date: 12/19/19 Please see the following information for a summary of their discharge status. Subjective: Water ex's have helped to manage back . Patient conts to have pain with bending and twisting. RLE Pain Intensity (Out of 10): 5 LLE Pain Intensity (Out of 10): 6 Lumbar Spine Pain Intensity (Out of 10): 6 LUE Pain Intensity (Out of 10): 6 % Improvement: 80 Objective/Function: POSTURE: MILD FOWARD POSTURE. GAIT: RECIPROCAL PATTERN. NEURO: INTACT. MMT: QUADS/HAMS/HIP 4/5,ANKLE 4/5. LUMBAR ROM: FLEXION WFL,EXTENSON MIN LOSS. -SLR Goal 1:: Patient will be I with HEP and progression Goal Progress: Goal Met Goal 2:: Patient will maintain proper posture t/o tx session to demo increased core s/s Goal Progress: Progressing Goal 3:: Patient will report 2/10 pain for 1 week Goal Progress: Progressing Plan: RTD possible MRI If there are questions or concerns regarding this patient's physical therapy, please feel free to call me at [phone]. Thank you for the referral of this patient. Sincerely, Kyle Tucker, PT, Cert MDT, OCS
== END 2019-12-19 19:00 | disposition home or self-care (01) ==
LOC: PT 09:30
PROVIDERS: PCP Internal Medicine; Referring Provider Internal Medicine; Visit Provider Internal Medicine
DX: M54.5 Low back pain (principal)
CPT/HCPCS: 97113; 97162; 97530

== ENCOUNTER 2020-01-26 08:46 | Day surgery (SDC) | payer MEDICAID, SELFPAY ==
--- NOTE | 2020-01-26 07:20 | RAD_ITS ---
PROCEDURE: Caudal block. DATE OF EXAMINATION: 01/26/2020. INDICATION: Male, 44 years old. Low back pain. FLUOROSCOPY TIME (if supplied): (11 seconds) minutes/seconds. 2 intraoperative images were obtained. RAD/Fluor Guidance for Spine Inj IMPRESSION: Intraoperative imaging provided for caudal block. Electronically Signed: Dada Craig, at 14:20 EDT , Service support ,
[2020-01-26 09:12] VITALS: BP 163/84; PULSE 77; RESP 16; TEMP 36.8; O2SAT 97; BMI 56.3
[2020-01-26] MEDS: Lactated Ringers 1,000 ML 100 ML IV (09:16)
[2020-01-26] MEDS: Bupivacaine 0.25% 30 ML Vial (09:48)
[2020-01-26] MEDS: MethylPREDNISolone Acetate 80 MG/ML Vial (09:48)
[2020-01-26] MEDS: 0.9% Normal Saline (Pres. free 10 ML Vial (09:49)
[2020-01-26 09:51] LABS: Bedside Glucose 111 mg/dL (70-110)
[2020-01-26 10:05] VITALS: RESP 16
[2020-01-26 10:10] VITALS: BP 141/105; BP 163/84; PULSE 76; RESP 16; O2SAT 97
[2020-01-26 10:15] VITALS: BP 145/95; BP 163/84; PULSE 65; RESP 18; O2SAT 95
[2020-01-26 10:24] VITALS: BP 125/77; BP 163/84; PULSE 68; RESP 16; O2SAT 98
[2020-01-26 10:32] VITALS: BP 163/84
--- NOTE | 2020-01-26 16:38 | PCM.OPRPT ---
Report of Operation Date of Procedure: 01/26/20 Description of Surgical Findings:: PREOPERATIVE DIAGNOSIS: Lumbosacral radiculopathy, lumbosacral degenerative disc disease, lumbosacral spinal stenosis POSTOPERATIVE DIAGNOSIS: Lumbosacral radiculopathy, lumbosacral degenerative disc disease, lumbosacral spinal stenosis PROCEDURE PERFORMED: Caudal epidural steroid injection. ANESTHESIA: MAC. BLOOD LOSS: Minimal. COMPLICATIONS: None. DESCRIPTION OF PROCEDURE: History and physical of today was reviewed. Risks and benefits of the procedure were explained. The patient understood and agreed to proceed. Informed consent was obtained. IV inserted per routine protocol. The patient was taken to the operating room and placed in the prone position with a pillow positioned underneath the abdomen. The lower back and tailbone area was prepped and draped in a sterile fashion using iodine x3. Under fluoroscopy guidance on a lateral view, the caudal space was identified. The skin and subcutaneous tissue was anesthetized with approximately 3 mL of 1% lidocaine using a 25-gauge regular needle. Under direct visualization with fluoroscopy, using a 22-gauge 3-1/2-inch spinal needle, the needle was advanced via the skin through the sacral hiatus. The tip of the needle was passed through the sacrococcygeal ligament and advanced to approximately S4 area. After negative aspiration of blood or CSF, a total of 3 mL of contrast was injected to confirm correct placement of the needle as well as cephalad spread. The spread was followed to approximately L5 area. After confirmation on AP as well as lateral view and repeated negative aspiration, a total of 15 mL of preservative-free 0.125% Marcaine with 80 mg of Depo-Medrol was injected easily. The needle was then removed intact. The patient experienced no sign or symptoms of intrathecal or intravascular injection. The patient experienced no paresthesia. The procedure was completed without any apparent difficulty or any complications. The patient appeared to tolerate it well. ASSESSMENT AND PLAN: This is a 44-year-old male with lumbosacral radiculopathy, lumbosacral disc disease, lumbosacral spinal stenosis status post caudal epidural steroid injection patient will continue his current medications, patient will follow in approximately 2 weeks for reevaluation.
== END 2020-01-26 10:43 | disposition home or self-care (01) ==
LOC: SDC 08:46 → AC 08:47
PROVIDERS: PCP Internal Medicine; Referring Provider Anesthesiology Pain Medicine; Visit Provider Anesthesiology Pain Medicine
PROC: 3E0S3BZ Introduction of Anesthetic Agent into Epidural Space, Percutaneous Approach (ICD-10-PCS; CPT 62282; principal; 2020-01-26 10:05)
DX: M51.17 Intervertebral disc disorders with radiculopathy, lumbosacral region (principal); M48.07 Spinal stenosis, lumbosacral region; F17.200 Nicotine dependence, unspecified, uncomplicated; K21.9 Gastro-esophageal reflux disease without esophagitis; I10 Essential (primary) hypertension; G47.30 Sleep apnea, unspecified; Z79.899 Other long term (current) drug therapy
CPT/HCPCS: 01992; 62323; 64520; 64483; 77003; 82962; J7120; J3490

== ENCOUNTER 2020-04-26 09:12 | Day surgery (SDC) | payer MEDICAID, SELFPAY ==
[2020-04-26 09:46] VITALS: BP 146/84; PULSE 78; RESP 16; TEMP 36.5; O2SAT 95; BMI 51.5
[2020-04-26] MEDS: Lactated Ringers 1,000 ML 100 ML IV (09:50)
[2020-04-26 10:31] LABS: Bedside Glucose 101 mg/dL (70-110)
--- NOTE | 2020-04-26 10:33 | RAD_ITS ---
PROCEDURE: Caudal block. DATE OF EXAMINATION: 04/26/2020. INDICATION: Male, 44 years old. Chronic low back pain. FLUOROSCOPY TIME (if supplied): (14.9 seconds) minutes/seconds. A single image was submitted. RAD/Fluor Guidance for Spine Inj IMPRESSION: Intraoperative imaging provided for caudal block. Electronically Signed: Dada Craig MD at 8:40 EST , Service support ,
[2020-04-26] MEDS: Bupivacaine 0.25% 30 ML Vial (10:41)
[2020-04-26] MEDS: 0.9% Normal Saline (Pres. free 10 ML Vial (10:41)
[2020-04-26] MEDS: Lidocaine 1% (5 ml sdv) 5 ML Vial (10:41)
[2020-04-26] MEDS: MethylPREDNISolone Acetate 40 MG/ML Vial IM (10:41)
--- NOTE | 2020-04-26 10:46 | PCM.OPRPT ---
Report of Operation Date of Procedure: 04/26/20 Description of Surgical Findings:: PREOPERATIVE DIAGNOSIS: Lumbosacral radiculopathy, lumbosacral degenerative disc disease, lumbosacral spinal stenosis POSTOPERATIVE DIAGNOSIS: Lumbosacral radiculopathy, lumbosacral degenerative disc disease, lumbosacral spinal stenosis PROCEDURE PERFORMED: caudal epidural steroid injection. ANESTHESIA: MAC. BLOOD LOSS: Minimal. COMPLICATIONS: None. DESCRIPTION OF PROCEDURE: History and physical of today was reviewed. Risks and benefits of the procedure were explained. The patient understood and agreed to proceed. Informed consent was obtained. IV inserted per routine protocol. The patient was taken to the operating room and placed in the prone position with a pillow positioned underneath the abdomen. The lower back and tailbone area was prepped and draped in a sterile fashion using iodine x3. Under fluoroscopy guidance on a lateral view, the caudal space was identified. The skin and subcutaneous tissue was anesthetized with approximately 3 mL of 1% lidocaine using a 25-gauge regular needle. Under direct visualization with fluoroscopy, using a 22-gauge 3-1/2-inch spinal needle, the needle was advanced via the skin through the sacral hiatus. The tip of the needle was passed through the sacrococcygeal ligament and advanced to approximately S4 area. After negative aspiration of blood or CSF, a total of 3 mL of contrast was injected to confirm correct placement of the needle as well as cephalad spread. The spread was followed to approximately L5 area. After confirmation on AP as well as lateral view and repeated negative aspiration, a total of 15 mL of preservative-free 0.125% Marcaine with 80 mg of Depo-Medrol was injected easily. The needle was then removed intact. The patient experienced no sign or symptoms of intrathecal or intravascular injection. The patient experienced no paresthesia. The procedure was completed without any apparent difficulty or any complications. The patient appeared to tolerate it well. ASSESSMENT AND PLAN: This is a 44-year-old male with lumbosacral radiculopathy, lumbosacral degenerative disc disease, lumbosacral spinal stenosis status post caudal epidural steroid injection, patient will continue his current medications, patient will follow approximately 2 weeks for reevaluation.
[2020-04-26 10:50] VITALS: BP 122/37; BP 146/84; PULSE 75; RESP 16; TEMP 36.7; O2SAT 92
[2020-04-26 10:55] VITALS: BP 128/47; BP 146/84; PULSE 77; RESP 16; O2SAT 94
[2020-04-26 11:00] VITALS: BP 136/83; BP 146/84; PULSE 70; RESP 16; O2SAT 96
[2020-04-26 11:05] VITALS: BP 133/78; BP 146/84; PULSE 72; RESP 16; TEMP 36.6; O2SAT 97
[2020-04-26 11:26] VITALS: BP 146/84
== END 2020-04-26 11:27 | disposition home or self-care (01) ==
LOC: SDC 09:13 → AC 09:14
PROVIDERS: PCP Internal Medicine; Referring Provider Anesthesiology Pain Medicine; Visit Provider Anesthesiology Pain Medicine
PROC: 3E0S3BZ Introduction of Anesthetic Agent into Epidural Space, Percutaneous Approach (ICD-10-PCS; CPT 62282; principal; 2020-04-26 10:35)
DX: M51.17 Intervertebral disc disorders with radiculopathy, lumbosacral region (principal); M48.07 Spinal stenosis, lumbosacral region; M47.27 Other spondylosis with radiculopathy, lumbosacral region; F17.200 Nicotine dependence, unspecified, uncomplicated; I10 Essential (primary) hypertension; G47.30 Sleep apnea, unspecified; K21.9 Gastro-esophageal reflux disease without esophagitis; Z79.891 Long term (current) use of opiate analgesic; Z79.899 Other long term (current) drug therapy
CPT/HCPCS: 62323; 64520; 64483; 77003; 82962; J7120; J3490

== ENCOUNTER 2020-08-09 13:29 | Day surgery (SDC) | payer MEDICAID, SELFPAY ==
[2020-08-09] VITALS (9 sets, daily range): BP systolic 112–155; BP diastolic 61–87; PULSE 66–81; RESP 16; TEMP 36.3–37.2; O2SAT 94–98; BMI 50.8
[2020-08-09] MEDS: Lactated Ringers 1,000 ML 100 ML IV (14:06)
[2020-08-09] MEDS: Bupivacaine 0.25% 30 ML Vial (14:33)
--- NOTE | 2020-08-09 14:36 | RAD_ITS ---
PROCEDURE: Caudal block. DATE OF EXAMINATION: 08/09/2020. INDICATION: Male, 44 years old. Chronic low back pain. FLUOROSCOPY TIME (if supplied): (9 seconds) minutes/seconds. 2 images were obtained. RAD/Fluor Guidance for Spine Inj IMPRESSION: Intraoperative imaging provided for caudal block. Electronically Signed: Daad Craig MD at 13:42 EDT , Service support ,
[2020-08-09] MEDS: MethylPREDNISolone Acetate 40 MG/ML Vial IM (14:42)
[2020-08-09] MEDS: 0.9% Normal Saline (Pres. free 10 ML Vial (14:42)
[2020-08-09] MEDS: Lidocaine 1% (5 ml sdv) 5 ML Vial (14:43)
--- NOTE | 2020-08-09 15:03 | OP.PCM_ITS ---
Report of Operation Date of Procedure: 08/09/20 Pre-Operative Diagnosis: Lumbosacral radiculopathy, lumbosacral degenerative di sc disease, lumbosacral spinal stenosis Post-Operative Diagnosis: Lumbosacral radiculopathy, lumbosacral degenerative disc disease, lumbosacral spinal stenosis Surgery/Procedure Performed:: Caudal epidural steroid injection under fluoroscopic guidance Type of Anesthesia: MAC Estimated Blood Loss (mL): Minimal Description of Procedure: DESCRIPTION OF PROCEDURE: History and physical of today was reviewed. Risks and benefits of the procedure were explained. The patient understood and agreed to proceed. Informed consent was obtained. IV inserted per routine protocol. The patient was taken to the operating room and placed in the prone position with a pillow positioned underneath the abdomen. The lower back and tailbone area was prepped and draped in a sterile fashion using iodine x3. Under fluoroscopy guidance on a lateral view, the caudal space was identified. The skin and subcutaneous tissue was anesthetized with approximately 3 mL of 1% lidocaine using a 25-gauge regular needle. Under direct visualization with fluoroscopy, using a 22-gauge 3-1/2-inch spinal needle, the needle was advanced via the skin through the sacral hiatus. The tip of the needle was passed through the sacrococcygeal ligament and advanced to approximately S4 area. After negative aspiration of blood or CSF, a total of 3 mL of contrast was injected to confirm correct placement of the needle as well as cephalad spread. The spread was followed to approximately L5 area. After confirmation on AP as well as lateral view and repeated negative aspiration, a total of 15 mL of preservative-free 0.125% Marcaine with 80 mg of Depo-Medrol was injected easily. The needle was then removed intact. The patient experienced no sign or symptoms of intrathecal or intravascular injection. The patient experienced no paresthesia. The procedure was completed without any apparent difficulty or any complications. The patient appeared to tolerate it well. ASSESSMENT AND PLAN: This is a 44-year-old male with lumbosacral radiculopathy, lumbosacral degenerative disc disease, lumbosacral spinal stenosis status post caudal epidural steroid injection, patient will continue his current medications, patient will follow in approximately 2 weeks for reevaluation. Complications None
== END 2020-08-09 15:45 | disposition home or self-care (01) ==
LOC: SDC 13:29 → AC 13:34
PROVIDERS: PCP Internal Medicine; Referring Provider Anesthesiology Pain Medicine; Visit Provider Anesthesiology Pain Medicine
PROC: 3E0S3BZ Introduction of Anesthetic Agent into Epidural Space, Percutaneous Approach (ICD-10-PCS; CPT 62282; principal; 2020-08-09 15:05)
DX: M51.17 Intervertebral disc disorders with radiculopathy, lumbosacral region (principal); M48.07 Spinal stenosis, lumbosacral region; M47.26 Other spondylosis with radiculopathy, lumbar region; I10 Essential (primary) hypertension; Z79.891 Long term (current) use of opiate analgesic; F17.210 Nicotine dependence, cigarettes, uncomplicated
CPT/HCPCS: 62323; 64520; 64483; 77003; J7120; J3490

== ENCOUNTER 2020-10-25 06:53 | Day surgery (SDC) | payer MEDICAID, SELFPAY ==
[2020-08-09 13:53] VITALS: BMI 50.8
[2020-10-25 07:40] LABS: Bedside Glucose 99 mg/dL (70-110)
[2020-10-25 07:59] VITALS: BP 154/97; PULSE 72; RESP 17; TEMP 36.2; O2SAT 100; BMI 52.5
[2020-10-25 08:44] LABS: Anion Gap 3 (5-15); BUN 15 mg/dL (7-18); BUN/Creat Ratio 20.7 RATIO (10-20); Calcium,Total 8.6 mg/dL (8.5-10.1); Chloride 108 mmol/L (98-107); Creatinine, Serum 0.72 mg/dL (0.70-1.30); EST Glomerular Filtration Rate 124 mL/min (>60); Est Glom Filt Rate - Afr Amer 150 mL/min (>60); Estimated Creatinine Clearance 125.35 ml/min; Glucose 94 mg/dL (74-106); Potassium 4.4 mmol/L (3.5-5.1); Sodium Level 139 mmol/L (136-145)
--- NOTE | 2020-10-25 09:40 | RAD_ITS ---
PROCEDURE: Left C4-C7 radiofrequency ablation. DATE OF EXAMINATION: 10/25/2020. INDICATION: Male, 44 years old. Chronic neck pain. FLUOROSCOPY TIME (if supplied): (35.3 seconds.) minutes/seconds RAD/Cerv Spine 2 or 3 Views IMPRESSION: Intraoperative imaging provided for left C4-C7 radiofrequency ablation. Electronically Signed: Dada Craig MD at 20:18 EDT , Service support ,
[2020-10-25] MEDS: MethylPREDNISolone Acetate 40 MG/ML Vial IM (09:42)
[2020-10-25] MEDS: Lidocaine 1% (30 ml sdv) 30 ML Vial (09:42)
[2020-10-25] MEDS: Bupivacaine 0.25% 30 ML Vial (09:42)
[2020-10-25 10:01] VITALS: BP 118/79; BP 154/97; PULSE 69; RESP 18; TEMP 35.8; O2SAT 95
[2020-10-25 10:05] VITALS: BP 122/93; BP 154/97; PULSE 69; RESP 18; O2SAT 97
[2020-10-25 10:10] VITALS: BP 139/96; BP 154/97; PULSE 67; RESP 18; O2SAT 97
[2020-10-25 10:18] VITALS: BP 154/97; BP 163/98; PULSE 65; RESP 18; TEMP 35.9; O2SAT 98
[2020-10-25 10:38] VITALS: BP 154/97
--- NOTE | 2020-10-25 16:09 | PCM.OPRPT ---
Report of Operation Date of Procedure: 10/25/20 Description of Surgical Findings:: PREOPERATIVE DIAGNOSIS: Cervical spondylosis, cervical degenerative disc disease, cervical facet arthropathy POSTOPERATIVE DIAGNOSIS: Cervical spondylosis, cervical degenerative disc disease, cervical facet arthropathy PROCEDURE PERFORMED: Left-sided radiofrequency ablation of the medial branch at C4, C5, C6, and C7. ANESTHESIA: MAC. BLOOD LOSS: Minimal. COMPLICATIONS: None. DESCRIPTION OF PROCEDURE: History and physical of today was reviewed. Risks and benefits of the procedure were explained. The patient understood and agreed to proceed. Informed consent was obtained. IV inserted per routine protocol. The patient was taken to the operating room and placed in the prone position with a pillow positioned underneath the chest. The neck area was prepped and draped in a sterile fashion using iodine x3. Under fluoroscopy guidance on an AP view, the C4 through C7 vertebral bodies were visualized. The skin and subcutaneous tissue was anesthetized with approximately 10 mL of 1% lidocaine using a 25-gauge regular needle. Under direct visualization on fluoroscopy on a lateral view, using a 21-gauge 10-cm with a 10-mm curved active-tip radiofrequency ablation needle, the needle was passed through the skin. The tip of the needle was maneuvered and directed towards the epiphyseal junction of each corresponding vertebra, starting on the left C4, ending on the left C7, passing through the C5 and C6. Once the tip of the needle was at the vicinity of the medial branch and at the middle of the trapezoid on the lateral view, the stylette of each needle was then removed. After negative aspiration of blood or CSF and confirmation on AP, oblique as well as lateral view, radiofrequency ablation probe was then inserted at each level. Impedance was then recorded at C4 to be 268 ohm, at C5 to be 307 ohm, at C6 to be 290 ohm, and at C7 to be 298 ohm. Motor-evoked potential was then initiated to 1.5 volt without any motor response to each corresponding level or the left arm. The probe was then removed intact and a total of 4 mL of preservative-free 1% lidocaine was injected in divided doses between those four levels after negative aspiration of blood or CSF. After repeated confirmation, the radiofrequency ablation probe was then inserted and after repeated confirmation on AP, oblique as well as lateral view, radiofrequency ablation was then initiated to approximately 80 degree Celsius for 60 second at each level. Once concluded, the probe was then removed intact. A total of 4 mL of preservative-free 0.25% Marcaine with 40 mg of Depo-Medrol was injected in divided doses between those four levels. The needles were then removed intact. The patient experienced no sign or symptoms of intrathecal or intravascular injection. The patient experienced no paresthesia. The procedure was completed without any apparent difficulty or any complications. The patient appeared to tolerate it well. Sensory as well as motor exam was unchanged from prior to the procedure. ASSESSMENT AND PLAN: This is a 44-year-old male with cervical spondylosis, cervical degenerative disc disease, cervical facet arthropathy status post left-sided cervical radiofrequency ablation of the medial branch at C4-C7, patient will continue his current medications, patient will follow in approximately 2 weeks for reevaluation.
== END 2020-10-25 10:40 | disposition home or self-care (01) ==
LOC: SDC 06:54 → AC 06:56
PROVIDERS: PCP Internal Medicine; Referring Provider Anesthesiology Pain Medicine; Visit Provider Anesthesiology Pain Medicine
PROC: (CPT 64633; principal; 2020-10-25 08:55)
DX: M47.812 Spondylosis without myelopathy or radiculopathy, cervical region (principal); M50.321 Other cervical disc degeneration at C4-C5 level; M79.7 Fibromyalgia; F17.200 Nicotine dependence, unspecified, uncomplicated; I10 Essential (primary) hypertension; G47.30 Sleep apnea, unspecified; Z79.1 Long term (current) use of non-steroidal anti-inflammatories (NSAID); Z79.891 Long term (current) use of opiate analgesic; Z79.899 Other long term (current) drug therapy
CPT/HCPCS: 01936; 64633; 64634; 72040; 76000; 80048; 82962; J7120

== ENCOUNTER 2020-12-27 10:41 | Day surgery (SDC) | payer MEDICAID, SELFPAY ==
[2020-12-27] VITALS (7 sets, daily range): BP systolic 112–174; BP diastolic 58–97; PULSE 64–73; RESP 16; TEMP 36.4–36.8; O2SAT 95–98; BMI 52.2
[2020-12-27] MEDS: Lactated Ringers 1,000 ML 100 ML IV (11:40)
--- NOTE | 2020-12-27 12:27 | RAD_ITS ---
PROCEDURE: Caudal block. DATE OF EXAMINATION: 12/27/2020. INDICATION: Male, 45 years old. Low back pain. FLUOROSCOPY TIME (if supplied): (6 seconds) minutes/seconds. One image was submitted. RAD/Fluor Guidance for Spine Inj IMPRESSION: Intraoperative imaging provided for caudal block. Electronically Signed: Dada Craig MD at 13:58 EDT , Service support ,
[2020-12-27] MEDS: 0.9% Normal Saline (Pres. free 10 ML Vial (12:34)
[2020-12-27] MEDS: Lidocaine 1% (5 ml sdv) 5 ML Vial (12:34)
[2020-12-27] MEDS: MethylPREDNISolone Acetate 80 MG/ML Vial (12:34)
[2020-12-27] MEDS: Bupivacaine 0.25% 30 ML Vial (12:34)
--- NOTE | 2020-12-27 12:59 | OP.PCM_ITS ---
Report of Operation Date of Procedure: 12/27/20 Pre-Operative Diagnosis: Lumbosacral radiculopathy, lumbosacral degenerative di sc disease, lumbosacral spinal stenosis Post-Operative Diagnosis: Lumbosacral radiculopathy, lumbosacral degenerative disc disease, lumbosacral spinal stenosis Surgery/Procedure Performed:: Caudal epidural steroid injection under fluoroscopic guidance Type of Anesthesia: MAC Estimated Blood Loss (mL): Minimal Description of Procedure: DESCRIPTION OF PROCEDURE: History and physical of today was reviewed. Risks and benefits of the procedure were explained. The patient understood and agreed to proceed. Informed consent was obtained. IV inserted per routine protocol. The patient was taken to the operating room and placed in the prone position with a pillow positioned underneath the abdomen. The lower back and tailbone area was prepped and draped in a sterile fashion using iodine x3. Under fluoroscopy guidance on a lateral view, the caudal space was identified. The skin and subcutaneous tissue was anesthetized with approximately 3 mL of 1% lidocaine using a 25-gauge regular needle. Under direct visualization with fluoroscopy, using a 22-gauge 3-1/2-inch spinal needle, the needle was advanced via the skin through the sacral hiatus. The tip of the needle was passed through the sacrococcygeal ligament and advanced to approximately S4 area. After negative aspiration of blood or CSF, a total of 3 mL of contrast was injected to confirm correct placement of the needle as well as cephalad spread. The spread was followed to approximately L5 area. After confirmation on AP as well as lateral view and repeated negative aspiration, a total of 15 mL of preservative-free 0.125% Marcaine with 80 mg of Depo-Medrol was injected easily. The needle was then removed intact. The patient experienced no sign or symptoms of intrathecal or intravascular injection. The patient experienced no paresthesia. The procedure was completed without any apparent difficulty or any complications. The patient appeared to tolerate it well. ASSESSMENT AND PLAN: This is a 45-year-old male with lumbosacral radiculopathy, lumbosacral degenerative disc disease, lumbosacral spinal stenosis status post caudal epidural steroid injection, patient will continue his current medications, patient will follow in approximately 2 weeks for reevaluation. Complications None
== END 2020-12-27 13:27 | disposition home or self-care (01) ==
LOC: SDC 10:42 → AC 11:34
PROVIDERS: PCP Internal Medicine; Referring Provider Anesthesiology Pain Medicine; Visit Provider Anesthesiology Pain Medicine
PROC: 3E0S3BZ Introduction of Anesthetic Agent into Epidural Space, Percutaneous Approach (ICD-10-PCS; CPT 62282; principal; 2020-12-27 12:45)
DX: M51.17 Intervertebral disc disorders with radiculopathy, lumbosacral region (principal); M48.07 Spinal stenosis, lumbosacral region; G47.30 Sleep apnea, unspecified; F17.200 Nicotine dependence, unspecified, uncomplicated; Z79.891 Long term (current) use of opiate analgesic; Z79.899 Other long term (current) drug therapy
CPT/HCPCS: 01992; 62323; 64483; 77003; J7120; J3490

== ENCOUNTER 2021-03-08 09:00 | Outpatient (RCR) | payer MEDICAID, SELFPAY ==
--- NOTE | 2021-01-28 15:45 | HP.PTEVAL ---
Patient's Visit Information RAFAL DUARTE is a 45 year old M referred to Physical Therapy by ANNMARIE Haynes with a diagnosis of Cervical DDD, Spondylolysis. Date of Evaluation: 01/28/21 Physical Therapist: Jaymie Lewis - Visit Plan Frequency: 2x /Week Duration: 4 Weeks Plan: Pt to begin ther ex plan to include stretching, light strengthening, and manual therapy as indicated to decrease cervical DDD related symptoms. Consider pool therapy for increased tolerance to exercise. Gave HEP to include rotation with OP, cervical extension with chin tuck (seated against wall) to preserve forward curve of c-spine, shoulder retraction, levator scap stretch. - Subjective Neck pain has been getting worse over the past couple years. 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 He is on his feet/standing a lot during the day. Pt has fusion C3-6 that was done in 2012, when he learned he had a bone chip go through the spinal column and spondylolysis. Reports that he walked with a cane for 2 years, does not use AD currently. Pt reports he has stenosis throughout the entire spine. Pt reports he gets injections in neck and lower back every 3 months or so, typically on the left, as his left is more affected (loss of strength, N&T). Recently, the right has started to bother him as well. Reports occasional migraines from the neck pain. Pt also reports pain in low back that radiates down left leg with N&T. With increased activity, he notices it on the right as well. Pt went through physical therapy at this clinic last year, and prior to that went to [facility]. Notices occasional dizziness/lightheadedness when laying flat on back or when neck pops. Pain: back of neck, into shoulders- 5/10 at rest, worst in the morning when he wakes up or when lifting overhead 7/10, best when laying on right side 4/10. Reports N&T down both arms, with pain radiating down left arm, and occasionally down right. Weather changes affect the pain, pain at end rage of all neck motions. Pt is on his feet standing a lot at work, which increases pain. Reports extended periods of walking (more than quarter mile) increases pain. - Pain neck/shoulders Pain Intensity (Out of 10): 5 Pain Intensity Range: 4, 7 back Pain Intensity (Out of 10): 4 Pain Intensity Range: 4, 8 - Objective POSTURE: rounded shoulders, kyphotic posure. NEURO: N&T down both arms, left leg (occasionally right leg). ROM: cervical- R rotation 75 degrees, L rotation 60 degrees, minimal extension, 30 degrees flexion, B SB WFL. UEs: WFLs (compensates for full shoulder flexion by hiking shoulders). Trunk: reaching toes with forward flexion, extension WFL, R>L rotation, SB WFL. MMT: UEs- grossly 5/5 throughout. Pt reports that he notices weakness in arms when he is having an episode. Core- poor - Balance/Special Test Scores Oswestry Neck Score: 26 - Goals Goal 1:: Pt to report compliance and I with HEP Goal Time Frame: 2-4 Weeks Goal 2:: Pt to demonstrate increase ROM of cervical spine f/e without increase in symptoms. Goal Time Frame: 2-4 Weeks Goal 3:: Pt to report decreased neck/shoulder pain at rest (3/10) Goal 4:: Pt will report increased tolerance to work related activities as indicated by decreased pain at end of day (<5/10). - Rehabilitation Potential Physical Therapy Diagnosis: Pt presents with neck pain, N&T, radiating pain down arms which are s/s that are consistent with a diagnosis of cervical DDD and spondylolysis. Pt would benefit from rehab program to decrease pain and alleviate symptoms to allow for increased participation in daily activities and work. Rehabilitation Potential: Good - Anticipated Interventions Patient/Client Instruction: Educate patient on: Condition, Plan of Care For the Purpose of:: To decrease pain, To increase tolerance to activity/condition/position Therapeutic Exercise to Include: Strength training, Postural training, Flexibilty training, Passive ROM, Active ROM For the Purpose of:: To increase ROM, To improve ability to perform ADL's Manual Therapy Techniques to Include: Mobilization For the Purpose of:: To decrease pain, To increase ROM Thank you for the opportunity to evaluate your patient. For Medicare and Medicare HMO plans, please review the plan of care and approve it. It will need to be FAXED BACK to us at [phone] for Medicare purposes. For Medicare only, by signing this I certify the plan of care. Please let me know if there are questions or concerns regarding this plan of care. Physician Signature: Date:
--- NOTE | 2021-03-11 11:59 | HP.PTDCSUM ---
It has been my pleasure to treat RAFAL DUARTE referred by ANNMARIE Haynes, with the diagnosis of Cervical DDD, Spondylolysis for a total of 8 visit(s). Discharge Date: 03/11/21 Please see the following information for a summary of their discharge status. Subjective: Pt. reports overall about the same. He has been working a lot due to being hunting season. Back paint 5-6/10, neck pain 5-6/10. Pt. reports overall symptoms are about the same. I have my good and bad days. Pt. reports overall being 50% better during good day. neck/shoulders Pain Intensity (Out of 10): 5 back Pain Intensity (Out of 10): 5 % Improvement: 50 Objective/Function: CERVICAL: flexion min loss tightness, ext max loss increase, rotation min loss minimal effect, SB min loss increase NW. LUMBAR SPINE: flexion mod loss increase nW, ext mod loss increase nW, SB mod loss increase nW bilat, rotation mod loss increase NW bilat. UE/LE strength 5/5 throughout. No sensation loss in any BLEs or BUEs. Normal DTR of B UEs and B LUEs. Goal 1:: Pt to report compliance and I with HEP Goal Progress: Goal Met Goal 2:: Pt to demonstrate increase ROM of cervical spine f/e without increase in symptoms. Goal Progress: Progressing Goal 3:: Pt to report decreased neck/shoulder pain at rest (3/10) Goal Progress: Progressing Goal 4:: Pt will report increased tolerance to work related activities as indicated by decreased pain at end of day (<5/10). Goal Progress: Progressing Plan: Pt. to be DC to HEP as this point in time. Discharge Comments: Pt. was seen for PT in aquatic setting for his neck and back pain. Pt. reports having some relief and has learned some new stretches to work on. Pt. plans to work on these exercises and follow up with physician. Pt. will be DC to HEP at this point in time. If there are questions or concerns regarding this patient's physical therapy, please feel free to call me at [phone]. Thank you for the referral of this patient. Sincerely, Tony Jacobson Sipos, DPT Balance/Gait/Functional tests - Balance/Special Test Scores Oswestry Neck Score: 21
== END 2021-03-08 19:00 | disposition home or self-care (01) ==
LOC: PT 09:00
PROVIDERS: PCP Internal Medicine; Referring Provider Nurse Practitioner Family; Visit Provider Nurse Practitioner Family
DX: M50.30 Other cervical disc degeneration, unspecified cervical region (principal); M47.812 Spondylosis without myelopathy or radiculopathy, cervical region; M12.9 Arthropathy, unspecified
CPT/HCPCS: 97113; 97161; 97164

== ENCOUNTER 2021-05-16 09:39 | Day surgery (SDC) | payer MEDICAID, SELFPAY ==
[2021-05-16] VITALS (7 sets, daily range): BP systolic 113–163; BP diastolic 69–89; PULSE 71–86; RESP 16; TEMP 36.2–37.6; O2SAT 92–97; BMI 50.4
[2021-05-16] MEDS: Lactated Ringers 1,000 ML 30 ML IV (10:18)
[2021-05-16] MEDS: Lidocaine 1% (30 ml sdv) 30 ML Vial (10:59)
[2021-05-16] MEDS: Bupivacaine 0.25% 30 ML Vial (10:59)
[2021-05-16] MEDS: MethylPREDNISolone Acetate 40 MG/ML Vial IM (10:59)
--- NOTE | 2021-05-16 11:00 | RAD_ITS ---
PROCEDURE: Caudal block. DATE OF EXAMINATION: 05/16/2021. INDICATION: Male, 45 years old. Chronic low back pain. FLUOROSCOPY TIME (if supplied): (8.6 seconds) minutes/seconds 3 images were obtained. RAD/Fluor Guidance for Spine Inj IMPRESSION: Intraoperative imaging provided for caudal block. Electronically Signed: Dada Craig MD at 15:27 EST ,
--- NOTE | 2021-05-16 11:22 | OP.PCM_ITS ---
Report of Operation Date of Procedure: 05/16/21 Pre-Operative Diagnosis: Lumbosacral radiculopathy, lumbosacral degenerative di sc disease, lumbosacral spinal stenosis Post-Operative Diagnosis: Lumbosacral radiculopathy, lumbosacral degenerative disc disease, lumbosacral spinal stenosis Surgery/Procedure Performed:: Caudal epidural steroid injection under fluoroscopic guidance Type of Anesthesia: MAC Estimated Blood Loss (mL): Minimal Description of Procedure: DESCRIPTION OF PROCEDURE: History and physical of today was reviewed. Risks and benefits of the procedure were explained. The patient understood and agreed to proceed. Informed consent was obtained. IV inserted per routine protocol. The patient was taken to the operating room and placed in the prone position with a pillow positioned underneath the abdomen. The lower back and tailbone area was prepped and draped in a sterile fashion using iodine x3. Under fluoroscopy guidance on a lateral view, the caudal space was identified. The skin and subcutaneous tissue was anesthetized with approximately 3 mL of 1% lidocaine using a 25-gauge regular needle. Under direct visualization with fluoroscopy, using a 22-gauge 3-1/2-inch spinal needle, the needle was advanced via the skin through the sacral hiatus. The tip of the needle was passed through the sacrococcygeal ligament and advanced to approximately S4 area. After negative aspiration of blood or CSF, a total of 3 mL of contrast was injected to confirm correct placement of the needle as well as cephalad spread. The spread was followed to approximately L5 area. After confirmation on AP as well as lateral view and repeated negative aspiration, a total of 15 mL of preservative-free 0.125% Marcaine with 80 mg of Depo-Medrol was injected easily. The needle was then removed intact. The patient experienced no sign or symptoms of intrathecal or intravascular injection. The patient experienced no paresthesia. The procedure was completed without any apparent difficulty or any complications. The patient appeared to tolerate it well. ASSESSMENT AND PLAN: This is a 45-year-old male with lumbosacral radiculopathy, lumbosacral degenerative disc disease, lumbosacral spinal stenosis status post caudal epidural steroid injection, patient will continue his current medications, patient will follow in approximately 2 weeks for reevaluation. Complications None
== END 2021-05-16 23:59 | disposition home or self-care (01) ==
LOC: SDC 09:39 → AC 09:41
PROVIDERS: PCP Internal Medicine; Referring Provider Anesthesiology Pain Medicine; Visit Provider Anesthesiology Pain Medicine
PROC: 3E0S3BZ Introduction of Anesthetic Agent into Epidural Space, Percutaneous Approach (ICD-10-PCS; CPT 62282; principal; 2021-05-16 11:10)
DX: M51.17 Intervertebral disc disorders with radiculopathy, lumbosacral region (principal); M46.96 Unspecified inflammatory spondylopathy, lumbar region; M48.07 Spinal stenosis, lumbosacral region; M50.30 Other cervical disc degeneration, unspecified cervical region; M48.061 Spinal stenosis, lumbar region without neurogenic claudication; M51.16 Intervertebral disc disorders with radiculopathy, lumbar region; Z79.891 Long term (current) use of opiate analgesic; M47.26 Other spondylosis with radiculopathy, lumbar region; M79.7 Fibromyalgia; K76.0 Fatty (change of) liver, not elsewhere classified
CPT/HCPCS: 62323; 01992; 64483; 77003; J7120

== ENCOUNTER 2021-06-12 10:08 | Emergency (ER) | payer MEDICAID, SELFPAY ==
[2021-06-12 10:09] VITALS: BP 197/113; PULSE 72; RESP 18; TEMP 36.6; O2SAT 99; BMI 50.1
--- NOTE | 2021-06-12 10:40 | CT_ITS ---
STUDY: CT LUMBAR SPINE WITHOUT CONTRAST REASON FOR EXAM: Male, 45 years old. Back pain SPINAL STENOSIS, HAD BACK INJECTIONS ONE MONTH AGO, N/T LEGS AND LBP RADIATION DOSAGE (If Supplied By Facility): CTDIvol = ( 43.61 ) mGy, DLP = ( 1125.12 ) mGycm TECHNIQUE: The patient was scanned in a multi detector CT scanner. High resolution transaxial imaging was performed. Images were obtained from to . Sagittal and coronal images were reconstructed. Individualized dose optimization techniques were used for this CT. COMPARISON: None FINDINGS: Normal lumbar lordosis. Mild to moderate levoscoliosis of the lumbar spine with asymmetric disc space narrowing. No visualized acute fracture or compression deformity. L1-2: Mild disc space narrowing with a minor disc spur complex. Retrolisthesis of L1 on L2 of 2 mm. Normal bilateral facet joints. Normal central canal and bilateral lateral recesses. Normal bilateral intervertebral neural foramina. L2-3: Normal endplates. Normal disc height and morphology. Normal bilateral facet joints. Normal central canal and bilateral lateral recesses. Normal bilateral intervertebral neural foramina. L3-4: Normal endplates. Normal disc height and morphology. Mild facet joint hypertrophy and central canal stenosis. Normal bilateral lateral recesses. Normal bilateral intervertebral neural foramina. L4-5: Mild to moderate disc space narrowing with intradiscal gas and a mild diffuse disc spur complex. Normal bilateral facet joints. Mild central canal stenosis is present. Normal bilateral lateral recesses. Normal bilateral intervertebral neural foramina. L5-S1: Mild disc space narrowing with intradiscal gas and a diffuse disc spur complex. Mild facet joint hypertrophy. Normal central canal and bilateral lateral recesses. Normal bilateral intervertebral neural foramina. Normal visualized paraspinous soft tissue structures. CT/Spine Lumbar without Contrast IMPRESSION: 1. Multilevel degenerative changes, as described above. 2. Mild central canal stenosis at L3-L4 and L4-L5. Electronically Signed: Jesse Morgan MD at 11:26 EST ,
--- NOTE | 2021-06-12 10:41 | ED.VIS.BACK ---
HPI History of Present Illness Chief Complaint: Other, Pain/Inj Narrative Narrative: Patient has past medical history of chronic back pain, spinal stenosis, has not yet gotten surgery on his back because he still needs to lose 30 pounds. He presents with pain in his right low back with mild radiation down the leg since . He states he elaine himself when he almost slipped. He does see pain management but does not take pain medications any longer because they gave him a fatty liver and caused problems inside. He does take methocarbamol for his chronic back pain. He was written prednisone for his back pain on Sunday, 2 days ago, and was told that if it is not improving over the next few days that he should be seen in the emergency department. He denies any loss of bowel or bladder. No fevers or chills. No true saddle anesthesia. He states that the prednisone is usually effective, but has not been recently. [facility] Medical History Arthritis Fatty liver Injury of head and neck Marijuana use Smoker Wears dentures Wears glasses Home Medications methocarbamol 500 mg PO PRN PRN 05/12/21 [History Last Taken Unknown] Allergy/AdvReac Type Severity Reaction Status Date / Time bupropion [From Zyban] Allergy SEIZURE Verified 06/12/21 10:11 varenicline [From Chantix] Allergy SEIZURE Verified 06/12/21 10:11 nitroglycerin AdvReac INCREASED Verified 06/12/21 10:11 HEART RATE [employer]IFICIAL SWEETNERS Allergy Anaphylaxis Uncoded 06/12/21 10:11 Surgical History Hx of appendectomy Hx of neck surgery Hx of tonsillectomy Social History Smoking Status: Current every day smoker tobacco type: cigarettes ROS ROS ED ROS Narrative Constitutional: No fever, no chills. HEENT: No sore throat. No neck pain. No loss of vision. No rhinorrhea. Cardiovascular: No chest pain. No palpitations. No pedal edema. Respiratory: No cough, no shortness of breath. Abdominal: No abdominal pain. No nausea. No vomiting. Genitourinary: No dysuria. No hematuria. Musculoskeletal: No myalgias. No arthralgias. Positive for right low back pain/sacroiliac joint area. Neurologic: No headaches. No dizziness. No lightheadedness. Skin: No rash. No change in color. Psychiatric: No depression. No anxiety. EXAM Physical Exam Narrative Exam Narrative: Afebrile. Vital signs noted. HEENT: Normocephalic. Atraumatic. PERRL, EOMI. Neck soft and supple. No point tenderness or step off. Cardiovascular: Regular rate and rhythm. No murmurs, rubs, or gallops appreciated. Respiratory: No tachypnea. Lungs clear to auscultation bilaterally. Gastrointestinal: Abdomen soft, obese, nontender, with normoactive bowel sounds. No rebound or guarding. Neurological: Awake. Alert. Nonfocal, nonlateralizing. Neurovascular intact bilateral lower extremities. DTRs equal and symmetric. Straight leg raising negative bilaterally. Mild tenderness to palpation right paraspinal musculature of lumbar area into SI joint. No step-off. Skin: No rash. Normal color. No pallor. Musculoskeletal: No pedal edema. Full range of motion extremities. Const Vital Signs: 06/12/21 10:09 06/12/21 10:30 Temperature 97.9 F Temperature Source Temporal Pulse Rate 72 Respiratory Rate 18 Respiratory Pattern Normal Blood Pressure 197/113 H Blood Pressure Mean 141 Pulse Ox 99 Oxygen Delivery Method Room Air MDM MDM MDM Narrative Medical decision making narrative: I discussed the use of pain medication with the patient. He states he does not usually use opiates. He will be given intramuscular injections of Toradol and Norflex. I will obtain imaging of his back in the form of CT of the lumbar spine to check his spinal stenosis. Patient does have multilevel degenerative changes and mild central canal stenosis at L3-L4, and L4-L5. After intramuscular injections, he still has pain. He will be administered an intramuscular injection of morphine 8 mg as a one-time dose. He already has a muscle relaxant and takes Advil at home. He will follow up with his pain management doctor. I do not feel that he needs emergent MRI at this time. Return instructions to the emergency department were reviewed. Disposition is discharged home in stable condition. Radiography Diagnostic Testing: Clinical Impression(s) from Imaging Studies Lumbar Spine CT 06/12/21 10:40 IMPRESSION: 1. Multilevel degenerative changes, as described above. 2. Mild central canal stenosis at L3-L4 and L4-L5. Electronically Signed: Jesse Morgan MD at 11:26 EST , Discharge Plan Triage Chief Complaint: Other, Pain/Inj ED Provider: Nick Vasquez Dx/Rx/DC Orders Clinical Impression: Degeneration of lumbosacral intervertebral disc, Lumbosacral stenosis, Acute exacerbation of chronic low back pain Instructions: ED Back Pain (Acute or Chronic), ED Degenerative Disk Disease, ED Pain Management: Chronic Prescriptions: No Action methocarbamol 500 mg tablet 500 mg PO PRN PRN (Reason: Spasms) RF: 0 Primary Care Provider: Care Physician,No Primary Referrals: West Ortiz MD [STAFF PHYSICIAN] - As Needed Care Physician,No Primary [Primary Care Provider] - Activity Restrictions/Additional Instructions: Follow-up with your pain management physician tomorrow Disposition Disposition: Home, Self Care
[2021-06-12] MEDS: Ketorolac 60 MG/2 ML Vial IM (11:14)
[2021-06-12] MEDS: Orphenadrine 60 MG/2 ML Ampul IM (11:14)
[2021-06-12] MEDS: Morphine 4 MG/ML Syringe 8 MG IM (11:48)
[2021-06-12 12:12] VITALS: BP 194/154; PULSE 62; RESP 16; O2SAT 100
== END 2021-06-12 12:13 | disposition home or self-care (01) ==
PROVIDERS: Emergency Provider Emergency Medicine; Visit Provider Emergency Medicine
DX: M51.37 Other intervertebral disc degeneration, lumbosacral region (principal); M48.07 Spinal stenosis, lumbosacral region; G89.29 Other chronic pain; F17.210 Nicotine dependence, cigarettes, uncomplicated
CPT/HCPCS: 72131; 96372; 99282

== ENCOUNTER 2022-08-16 12:16 | Emergency (ER) | payer MEDICAID, SELFPAY ==
[2022-08-16 12:17] VITALS: BP 173/99; PULSE 78; RESP 18; TEMP 36.4; O2SAT 99; BMI 49.8
--- NOTE | 2022-08-16 13:04 | EDS_ITS ---
HPI History of Present Illness Chief Complaint: Other, Pain/Inj Informant: patient and spouse/S.O. Narrative Narrative: Patient complains of neck and upper back pain. Patient states he has had pain in this area for greater than 10 years. He had anterior fusion in 2012. He still had pain ever since. He was diagnosed with spinal stenosis. He occasionally gets tingling in his fingertips on the left but this is off-and-on and not new or different. He is not having it currently. 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 He lifts up to 90 pounds on occasion. They recently made 2-4 people doing this job every day but now they want him to do it by himself. He states this is just causing a lot of pain and discomfort. He has no fall or acute trauma. He does see a spine physician and had injections on his left side a few weeks ago. This did help somewhat but they are due to have the injections on the right side somewhere soon. Working moving and bending makes the pain worse and rest makes it better. He states that ice sets off his nerve endings. He is on methocarbamol. He is not on any narcotic. I did do online prescribing report review that shows cannabinoid prescriptions but no narcotics. [facility] Medical History Arthritis Fatty liver Injury of head and neck Marijuana use Smoker Wears dentures Wears glasses Home Medications methocarbamol 500 mg tablet 500 mg PO PRN PRN Spasms 05/12/21 [History Last Taken Unknown] hydrocodone-acetaminophen 5-325mg 5mg-325mg 1 tab PO Q6H PRN PRN Pain 3 days #10 TABLETS 08/16/22 [Rx Last Taken Unknown] Allergy/AdvReac Type Severity Reaction Status Date / Time Food Allergies: Uncoded Allergy Severe Anaphylaxis Verified 03/20/22 09:45 bupropion [From Zyban] Allergy SEIZURE Verified 08/16/22 12:20 varenicline [From Chantix] Allergy SEIZURE Verified 08/16/22 12:20 nitroglycerin AdvReac INCREASED Verified 08/16/22 12:20 HEART RATE Surgical History Hx of appendectomy Hx of neck surgery Hx of tonsillectomy Social History Smoking Status: Current every day smoker tobacco type: cigarettes ROS ROS ED ROS Narrative A complete review of systems was performed and is negative except as documented in the history of present illness. Some specific details below. Constitutional: No recent fevers or chills. No rigors. Patient has not generally felt ill. No recent infections. EYE: No discharge, visual complaints, or pain. ENT: No sinus pressure or pain. No nasal discharge. Neck: See history of present illness. CV: No chest pain, pressure or aching. No palpitations or irregular beats. Patient has not been presyncopal or syncopal. Respiratory: No trouble breathing. No cough. No wheezing. No sputum production. No pain with breathing. GI: No abdominal pain. No nausea vomiting diarrhea. No blood in stool. No loss of bowel control. : No difficulty starting stopping stream. No hematuria. No dysuria. Musculoskeletal: No recent trauma. No swelling. Please see history of present illness. Skin: No rash. No diaphoresis. No vesicles. Neuro: No weakness or numbness. He occasionally gets tingling in his left fingertips but this is chronic. He is not having it now. No weakness. Please see history of present illness also. Endocrine: No polyuria or polydipsia. EXAM Physical Exam Narrative Exam Narrative: CONSTITUTIONAL: Patient is nontoxic in appearance. The patient looks c omfortable. Work of breathing looks normal. HEENT: No notable trauma. Mucous membranes moist. No sinus tenderness. No sign of dental infection. EYES: No conjunctival injection. No pallor. NECK: No meningismus. No JVD. Well-healed scar on anterior right side. He has some mild paraspinal tenderness. No skin changes. CARDIOVASCULAR: Regular rate. Regular rhythm. No notable murmur. No JVD. RESPIRATORY: No respiratory distress. Breathing is unlabored. No wheezes. No rhonchi. No rales. No pain with a deep breath. GASTROINTESTINAL: Not distended. Bowel sounds are normal. No tenderness. No gua rding. No rebound. No palpable mass. No bruit. GENITOURINARY: No tenderness over the bladder. No CVA tenderness. MUSCULOSKELETAL: Mild diffuse paraspinal tenderness from cervical all the way through the thoracic spine. But no mass. No percussion tenderness. No skin changes. Lower extremities show some chronic mild edema but evidently this is not new or different. NEUROLOGICAL: Patient is alert and oriented. No focal deficit noted. Patient has good upper senior compensation consultant strength and sensation. He can walk coordinated. He has good strength of quads and lower legs. Although he occasionally gets tingling in his left hand the sensation is normal grossly now. SKIN: No noted rashes. No diaphoresis. No vesicles noted. No notable pallor. PSYCHIATRIC: Patient is calm. Mood is appropriate. Const Vital Signs: 08/16/22 12:17 Temperature 97.6 F L Temperature Source Temporal Pulse Rate 78 Respiratory Rate 18 Blood Pressure 173/99 H Blood Pressure Mean 123 Pulse Ox 99 Oxygen Delivery Method Room Air MDM MDM MDM Narrative Medical decision making narrative: Patient's had chronic recurrent pain for more than 10 years. I think his symptoms are likely exacerbated by the increased lifting at work. I will write for some pain meds. We will write him off work for about 2 days to let him rest. He is going to follow-up with his physician about further injections Discharge Plan Triage Chief Complaint: Other, Pain/Inj ED Provider: Kamran Calhoun Dx/Rx/DC Orders Clinical Impression: Neck pain, Chronic bilateral thoracic back pain Instructions: ED Back Pain (Acute or Chronic) Prescriptions: New hydrocodone-acetaminophen [hydrocodone-acetaminophen] 5-325 mg tablet 1 tab PO Q6H PRN PRN (Reason: Pain) 3 Days Qty: 10 0RF No Action methocarbamol 500 mg tablet 500 mg PO PRN PRN (Reason: Spasms) Label Comments: TAKE 1 TABLET BY MOUTH UP TO 3 TIMES A DAY NEEDED FOR SPASM Primary Care Provider: Yanna Dutton Referrals: Yanna Dutton DO [Primary Care Provider] - 3-5 Days Disposition Disposition: Home, Self Care
== END 2022-08-16 13:22 | disposition home or self-care (01) ==
PROVIDERS: Emergency Provider Emergency Medicine; PCP Family Medicine; Visit Provider Emergency Medicine
DX: M54.6 Pain in thoracic spine (principal); G89.29 Other chronic pain; M54.2 Cervicalgia; F17.210 Nicotine dependence, cigarettes, uncomplicated
CPT/HCPCS: 99282

== ENCOUNTER 2022-10-12 17:00 | Outpatient (RCR) | payer MEDICAID, SELFPAY ==
--- NOTE | 2022-09-11 16:12 | HP.PTEVAL ---
Patient's Visit Information RAFAL DUARTE is a 46 year old M referred to Physical Therapy by ANNMARIE Hurley with a diagnosis of Neck pain. Date of Evaluation: 09/11/22 Physical Therapist: Vishal Strauss PT, ATC - Visit Plan Frequency: 2-3x /Week Duration: 4-6 Weeks Plan: Aquatic therapy consisting of R shoulder strengthening, scap stab ex's, postural education, and HEP - Subjective Pt reports he has been having pain in the right side of his neck for the past 2-3 months. Pt reports his pain started when he had to lift heavy weight while at work. 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 Pt reports he has tingling and numbness in B UE's, which he has had since he had a spinal fusion performed from C3-6 in 2012. Pt reports he has had aquatic therapy in the [facility] which really helped him feel much better. Pt notes he has had LBP and T/S pain in the past as well. Pt has not been working for the past several weeks secondary to having weight restrictions at work. Pt hopes to be able to go back soon. Pt is R hand dominant. Pt reports sleep difficulty secondary to pain. Pt notes he has to constantly change positions in order to sleep. 6/10 pain while sitting here at rest, 10/10 pain at worst (when he turns his head and his neck pops) - Pain Neck pain Pain Intensity (Out of 10): 6 Pain Intensity Range: 10 - Objective Neuro: Pt is hyposensitive to light touch on R UE C5-6-7 distributions. All other sensation is WNL to light touch. ROM: Pt is severely limited with retraction and extension. all other motions are WFL when compared bilaterally. MMT: R shoulder flexion and abduction 4-/5. All other B UE's are grossly 5/5 throughout. Repeated movements: Not tolerated today. Pt experienced B UE numbness with retraction x 1 - Balance/Special Test Scores Oswestry Neck Score: 24 - Goals Goal 1:: Decrease cervical spine pain x 50% to aid with sleep Goal Time Frame: 4-6 Weeks Goal 2:: Increase R UE strength to 5/5 throughout to aid with return to work without limitation Goal Time Frame: 4-6 Weeks Goal 3:: Increase cervical spine retraction and extension ROM x 1 grade to aid with driving Goal Time Frame: 4-6 Weeks Goal 4:: I with HEP Goal Time Frame: 4-6 Weeks - Rehabilitation Potential Physical Therapy Diagnosis: Pt has neck pain, limited c/s ROM, and R UE weakness secondary to degenerative changes in the cervical spine Rehabilitation Potential: Good - Anticipated Interventions Patient/Client Instruction: Educate patient on: Condition, Plan of Care For the Purpose of:: To improve self management Therapeutic Exercise to Include: Strength training, Endurance training, Postural training, In an aquatic setting, Active ROM, Scapular Strength/Stabilization For the Purpose of:: To decrease pain, To increase ROM, To improve muscle performance and motor function Thank you for the opportunity to evaluate your patient. For Medicare and Medicare HMO plans, please review the plan of care and approve it. It will need to be FAXED BACK to us at [phone] for Medicare purposes. For Medicare only, by signing this I certify the plan of care. Please let me know if there are questions or concerns regarding this plan of care. Physician Signature: Date:
--- NOTE | 2022-10-12 17:36 | HP.PTDCSUM ---
Discharge Summary D/C summary: It has been my pleasure to treat RAFAL DUARTE referred by ANNMARIE Hurley, with the diagnosis of Neck pain for a total of 10 visit(s). Discharge Date: Please see the following information for a summary of their discharge status. Subjective Subjective: I am a lot better now Pain Neck pain: Pain Intensity (Out of 10): 4 Overall Improvement % Improvement: 80 Objective Objective/Function: R shoulder pain ranges 4-6/10 R shoulder MMT: 5/5 throughout Pt is I with HEP Pt is still limited with c/s ext and retraction Goals Goal 1:: Decrease cervical spine pain x 50% to aid with sleep Goal Progress: Progressing Goal 2:: Increase R UE strength to 5/5 throughout to aid with return to work without limitation Goal Progress: Goal Met Goal 3:: Increase cervical spine retraction and extension ROM x 1 grade to aid with driving Goal Progress: Goal Met Goal 4:: I with HEP Goal Progress: Goal Met Plan Plan: Discharge to HEP D/C Information d/c sentence: If there are questions or concerns regarding this patient's physical therapy, please feel free to call me at [phone]. Thank you for the referral of this patient. Sincerely, Vishal Strauss, PT, ATC Balance/Gait/Functional tests Balance/Special Test Scores Oswestry Neck Score: 15
== END 2022-10-12 19:00 | disposition home or self-care (01) ==
LOC: PT 17:00
PROVIDERS: PCP Family Medicine; Referring Provider Nurse Practitioner Acute Care; Visit Provider Nurse Practitioner Acute Care
DX: M50.30 Other cervical disc degeneration, unspecified cervical region (principal); M47.812 Spondylosis without myelopathy or radiculopathy, cervical region; M12.9 Arthropathy, unspecified; M25.519 Pain in unspecified shoulder; S49.80XD Other specified injuries of shoulder and upper arm, unspecified arm, subsequent encounter; M51.37 Other intervertebral disc degeneration, lumbosacral region; M54.6 Pain in thoracic spine; M47.814 Spondylosis without myelopathy or radiculopathy, thoracic region; M79.7 Fibromyalgia; M48.061 Spinal stenosis, lumbar region without neurogenic claudication
CPT/HCPCS: 97113; 97161; 97164